=== PATIENT | female | born 1970 | race Caucasian/White ===

== ENCOUNTER 2017-11-05 14:17 | Emergency (ER) | payer OTHER, SELFPAY ==
[2017-11-05 14:19] VITALS: BP 141/66; PULSE 65; RESP 20; TEMP 36.5; O2SAT 100; BMI 19.2
--- NOTE | 2017-11-05 14:37 | HMH.EDABDPAI ---
ED Disposition Clinical Impression: Abnormal CT of the abdomen, Recent unexplained weight loss Abdominal pain Qualifiers: Abdominal location: right lower quadrant Qualified Code(s): R10.31 - Right lower quadrant pain Disposition: Xfer Short-Term Hosp Condition on Discharge: Fair Instructions: DI for Acute Abdomen Forms: Transfer Record - ED - Critical Care Critical Care Time: No Attestation: On 11/05/17, the high probability of a clinically significant, sudden or life threatening deterioration of the following system(s) required my full and direct attention, intervention and personal management. The time I documented below is in addition to time spent performing reported procedures but includes the following listed in this critical care notation. Medical Decision Making - Stas Inquiry Pt receiving controlled substance: Yes Stas was queried for this patient: Yes Reference #:: [id number] Risks and benefits of using a controlled substance: were discussed with pt by me Vital Signs: 11/05/17 14:19 11/05/17 16:49 11/05/17 17:28 Temperature 97.7 F 97.7 F Temperature Source Oral Oral Pulse Rate 77 Pulse Rate [Right Radial] 65 77 Respiratory Rate 20 20 20 Blood Pressure 132/78 Blood Pressure [Right Arm] 141/66 132/78 Blood Pressure Mean [Right Arm] 91 96 Blood Pressure Source [Right Arm] Automatic Cuff Blood Pressure Position Sitting Blood Pressure Position [Right Arm] Sitting Sitting 02 Sat by Pulse Oximetry 100 99 Oxygen Delivery Method Room Air Room Air Room Air - Lab Data Lab results reviewed: Yes: I reviewed the patient's lab results. Lab Results 11/05/17 14:35: WBC 9.5, RBC 4.94, Hgb 15.0, Hct 44.1, MCV 89.3, MCH 30.4, MCHC 34.0, RDW 12.2, Plt Count 409, MPV 7.1 L, Neut % (Auto) 75.6, Lymph % (Auto) 19.6, [place] % (Auto) 2.6, Eos % (Auto) 1.7, Baso % (Auto) 0.5, Neut # (Auto) 7.2, Lymph # (Auto) 1.9, [place] # (Auto) 0.3, Eos # (Auto) 0.2, Baso # (Auto) 0.0 11/05/17 14:35: Sodium 141, Potassium 3.6, Chloride 102, Carbon Dioxide 28, Anion Gap 14.6, BUN 17, Creatinine 0.65, Estimated Creat Clear 79, Estimated GFR 97, Est GFR ( Amer) 117, Glucose 120 H, Calcium 9.7, Total Bilirubin 0.2, AST 17, ALT 23, Alkaline Phosphatase 83, Total Protein 7.9, Albumin 3.9, Globulin 4.0 H, Albumin/Globulin Ratio 1.0 L 11/05/17 16:10: Urine Color Yellow, Urine Appearance Clear, Urine pH 5.5, Ur Specific [place] >= 1.030, Urine Protein Negative, Urine Glucose (UA) Negative, Urine Ketones Negative, Urine Blood 2+, Urine Nitrate Negative, Urine Bilirubin Negative, Urine Urobilinogen 0.2, Ur Leukocyte Esterase Negative, Urine RBC 5-10, Urine WBC Occasional, Ur Squamous Epith Cells 5-10, Urine Bacteria 2+, Hyaline Casts 3-5 Result diagrams: 11/05/17 14:35 11/05/17 14:35 Orders (Tests/Meds): ED MEDICATIONS Discontinued Medications Generic Name Dose Route Start Last Admin Trade Name Freq PRN Reason Stop Dose Admin Sodium Chloride 1,000 mls @ 500 mls/hr 11/05/17 15:00 Sod Chlor 0.9% 1000ml Bag IV 12/05/17 14:59 .Q2H TAYO Sodium Chloride 500 mls @ 999 mls/hr 11/05/17 15:00 11/05/17 14:52 Sod Chlor 0.9% 1000ml Bag IV 11/05/17 15:30 999 mls/hr .Q31M TAYO Administration Ketorolac Tromethamine 15 mg 11/05/17 14:46 11/05/17 14:50 Toradol 30mg/Ml Vial IV 11/05/17 14:47 15 mg ONCE ONE Administration Ketorolac Tromethamine 15 mg 11/05/17 15:11 11/05/17 15:12 Toradol 30mg/Ml Vial IV 11/05/17 15:12 15 mg ONCE ONE Administration Morphine Sulfate 2 mg 11/05/17 16:34 Morphine 5mg/Ml Syringe IV 12/05/17 16:33 Q4HP PRN Breakthru Moderate Pain Morphine Sulfate 2 mg 11/05/17 17:05 11/05/17 17:09 Morphine 2mg/Ml Syringe IV 11/05/17 17:06 2 mg ONCE ONE Administration Morphine Sulfate 2 mg 11/05/17 17:35 Morphine 2mg/Ml Syringe IV 11/05/17 17:36 ONCE ONE Ondansetron HCl 4 mg 11/05/17 14:46 11/05/17 14:50 Zofran 4mg/2
--- NOTE | 2017-11-05 14:40 | ED_ITS ---
ED Disposition Clinical Impression: Abnormal CT of the abdomen, Recent unexplained weight loss Abdominal pain Qualifiers: Abdominal location: right lower quadrant Qualified Code(s): R10.31 - Right lower quadrant pain Disposition: Xfer Short-Term Hosp Condition on Discharge: Fair Instructions: DI for Acute Abdomen Forms: Transfer Record - ED - Critical Care Critical Care Time: No Attestation: On 11/05/17, the high probability of a clinically significant, sudden or life threatening deterioration of the following system(s) required my full and direct attention, intervention and personal management. The time I documented below is in addition to time spent performing reported procedures but includes the following listed in this critical care notation. Medical Decision Making - Stas Inquiry Pt receiving controlled substance: Yes Stas was queried for this patient: Yes Reference #:: [id number] Risks and benefits of using a controlled substance: were discussed with pt by me Vital Signs: 11/05/17 14:19 11/05/17 16:49 11/05/17 17:28 Temperature 97.7 F 97.7 F Temperature Source Oral Oral Pulse Rate 77 Pulse Rate [Right Radial] 65 77 Respiratory Rate 20 20 20 Blood Pressure 132/78 Blood Pressure [Right Arm] 141/66 132/78 Blood Pressure Mean [Right Arm] 91 96 Blood Pressure Source [Right Arm] Automatic Cuff Blood Pressure Position Sitting Blood Pressure Position [Right Arm] Sitting Sitting 02 Sat by Pulse Oximetry 100 99 Oxygen Delivery Method Room Air Room Air Room Air - Lab Data Lab results reviewed: Yes: I reviewed the patient's lab results. Lab Results 11/05/17 14:35: WBC 9.5, RBC 4.94, Hgb 15.0, Hct 44.1, MCV 89.3, MCH 30.4, MCHC 34.0, RDW 12.2, Plt Count 409, MPV 7.1 L, Neut % (Auto) 75.6, Lymph % (Auto) 19.6, [place] % (Auto) 2.6, Eos % (Auto) 1.7, Baso % (Auto) 0.5, Neut # (Auto) 7.2 , Lymph # (Auto) 1.9, [place] # (Auto) 0.3, Eos # (Auto) 0.2, Baso # (Auto) 0.0 11/05/17 14:35: Sodium 141, Potassium 3.6, Chloride 102, Carbon Dioxide 28, Anion Gap 14.6, BUN 17, Creatinine 0.65, Estimated Creat Clear 79, Estimated GFR 97, Est GFR ( Amer) 117, Glucose 120 H, Calcium 9.7, Total Bilirubin 0.2, AST 17, ALT 23, Alkaline Phosphatase 83, Total Protein 7.9, Albumin 3.9, Globulin 4.0 H, Albumin/Globulin Ratio 1.0 L 11/05/17 16:10: Urine Color Yellow, Urine Appearance Clear, Urine pH 5.5, Ur Specific [place] >= 1.030, Urine Protein Negative, Urine Glucose (UA) Negative, Urine Ketones Negative, Urine Blood 2+, Urine Nitrate Negative, Urine Bilirubin Negative, Urine Urobilinogen 0.2, Ur Leukocyte Esterase Negative, Urine RBC 5-10 , Urine WBC Occasional, Ur Squamous Epith Cells 5-10, Urine Bacteria 2+, Hyaline Casts 3-5 Result diagrams: 11/05/17 14:35 11/05/17 14:35 Orders (Tests/Meds): ED MEDICATIONS Discontinued Medications Generic Name Dose Route Start Last Admin Trade Name Freq PRN Reason Stop Dose Admin Sodium Chloride 1,000 mls @ 500 mls/hr 11/05/17 15:00 Sod Chlor 0.9% 1000ml Bag IV 12/05/17 14:59 .Q2H TAYO Sodium Chloride 500 mls @ 999 mls/hr 11/05/17 15:00 11/05/17 14:52 Sod Chlor 0.9% 1000ml Bag IV 11/05/17 15:30 999 mls/hr .Q31M TAYO Administration Ketorolac Tromethamine 15 mg 11/05/17 14:46 11/05/17 14:50 Toradol 30mg/Ml Vial IV 11/05/17 14:47 15 mg ONCE ONE Administration
--- NOTE | 2017-11-05 14:48 | CT_ITS ---
CT abdomen pelvis wo con Ordering Physician: Aggie Gilmore MD Patient Age: 47 years: Female HISTORY: ITS.REASON: Kidney stone protocol TECHNIQUE: COMPARISON : FINDINGS On close inspection I would note DOT of FREE AIR seen just anterior to the liver in the region of falciform ligament axial slice 35. Continuing inferior to this there is also a smallDOT FREE AIR axial slice 49 just anterior to the antrum of the low-lying stomach, just to the right of the umbilicus. Lung bases. A linear area of likely inflammation likely scarring and atelectasis with somewhat similar appearance to thousand 15. Slightly more evident today is adjacent to thousand 15.. Right lung unremarkable. The heart normal size. Abdomen/pelvis. Lack of oral & IV contrast decreases sensitivity. Particularly in this thin patient Liver no focal lesions. Liver upper normal in size with generous length right lobe 19 seem in length extending down towards the level of the iliac crest upper pelvis. There is some edema within the mesentery and omentum. Spleen unremarkable. Pancreas not well seen on this noncontrast study but grossly unremarkable. No biliary ductal dilatation. -- Hazy stranding slight edematous appearance is seen throughout the anterior abdomen, is likely reflects omental edema. Either inflammation or ischemia here or possibly omental implants are in the differential considerations. However less evident edema seen at the mesentery also some wispy seen inferior to the right lobe of liver. Minimal free fluid at the pelvis. Nonspecific physiologic pelvic fluid versus related to the above mentioned abnormalities The appendix was well seen on a 2015 study posterior to the cecum. I suspect we see a the appendix here although it is difficult to delineate. No good evidence of appendicitis. After speaking with ER physician may want to consider a follow-up follow-up study with IV contrast to further evaluate vascularity given this unusual appearance. I would like to see a very enhancing masses into the evaluate mesenteric and possibly omental perfusion pattern. There is no bowel dilatation or obstruction evident. There are some small bowel loops of upper normal wall thickness but this is unimpressive. Moderate stool is seen throughout the right and transverse colon and left colon. No constipation. Pelvis. Uterus is generous in size in girth. Again prominent uterus which may reflect underlying uterine fibroids fundus of uterus measuring 7 cm transverse with entire uterus measuring 8 cm length. No obvious adnexal masses.. No mesenteric nor portal venous gas evident. Kidneys. No urinary tract calculi nor obstruction. Ureters unremarkable aorta normal caliber IMPRESSION: 1.TWO SUBTLE DOTs of FREE AIR are seen at the anterior abdomen. Axial slice 35 in the region of the falciform ligament; the other overlying the antrum of the stomach axial slice 49. Surgical consult required. 2. ... Abnormal Hazy edematous stranding appearance throughout the Omentum throughout anterior abdomen.-Reflects omental pathology either from edema/ inflammation, or conceivably omental seeding. Less Likely ischemia process this age patient but included in the differential.. Also diffuse mild mesenteric edema noted but slightly less, pronounced than the omental findings It also Wispy fluid along the inferior margin into the right right pelvis, with minimal free fluid at pelvis.. 3. No bowel dilatation or obstruction. A few small bowel loops are upper normal wall thickness. 4.... Again noted enlarged uterus similar to 2015. Large girth uterus likely reflecting underlying fibroids No definitive adnexal pathology but difficult to evaluate for such on this scan 5.. Linear area of density left
[2017-11-05 15:06] LABS: Basophils % 0.5 % (0.1-2.0); Eosinophils # 0.2 K/mm3 (0.0-0.4); Eosinophils % 1.7 % (0.1-12.0); Hematocrit 44.1 % (37.0-47.0); Lymphocytes # 1.9 K/mm3 (0.7-4.5); Lymphocytes % 19.6 K/mm3 (10-50); Mean Corpuscular Hemoglobin 30.4 pg (27.0-31.2); Mean Corpuscular Volume 89.3 fl (81-99); Mean Platelet Volume 7.1 fl (7.4-10.4); Monocytes # 0.3 K/mm3 (0.1-1.0); Monocytes % 2.6 % (1.7-9.3); Neutrophils # 7.2 K/mm3 (1.8-7.8); Neutrophils % 75.6 % (37.0-80.0); Platelet Count 409 K/mm3 (142-424); Red Blood Count 4.94 M/mm3 (4.20-5.40); Red Cell Distribution Width 12.2 % (11.5-17.5); White Blood Count 9.5 K/mm3 (4.8-10.8)
[2017-11-05 15:10] LABS: Alanine Aminotransferase 23 U/L (12-78); Albumin Level 3.9 gm/dL (3.4-5.0); Alkaline Phosphatase 83 U/L (46-116); Anion Gap 14.6 mEq/L (5-15); Aspartate Amino Transferase 17 U/L (15-37); Bilirubin,Total 0.2 mg/dL (0.2-1.0); Blood Urea Nitrogen 17 mg/dL (7-18); Calcium 9.7 mg/dL (8.5-10.1); Carbon Dioxide 28 mmol/L (21.0-32.0); Chloride 102 mmol/L (98-107); Creatinine Clearance Estimated 79 mL/min (0-300); Creatinine,Serum 0.65 mg/dL (0.55-1.02); Estimated Glomerular Filt Rate 97 ml/min (>60); GFR (African American) 117 ML/MIN (>60); Glucose 120 mg/dL (74-106); Potassium 3.6 mmoL/L (3.5-5.1); Sodium 141 mmol/L (136-145); Total Protein,Serum 7.9 gm/dL (6.4-8.2)
[2017-11-05 16:45] LABS: Microscopic, Urine URINE MICROSCOPIC (MICROSCOPIC)
[2017-11-05 16:49] VITALS: BP 132/78; PULSE 77; RESP 20; O2SAT 99
--- NOTE | 2017-11-05 17:00 | PC.NURSE ---
Called [facility]
[2017-11-05 17:03] LABS: Appearance,Urine CLEAR (Clear); Bilirubin,Urine Negative (Negative); Blood, Urine 2+ (Negative); Color,Urine YELLOW (Yellow); Glucose,Urine (UA) Negative (Negative); Ketones,Urine Negative (Negative); Leukocyte Esterase,Urine Negative (Negative); Nitrate,Urine Negative (Negative); PH,Urine 5.5 (5.0-8.5); Protein,Urine Negative (Negative); Specific Gravity, Urine >= 1.030 (1.005-1.030); Urobilinogen,Urine 0.2 EU/dl (0.2)
--- NOTE | 2017-11-05 17:09 | PC.NURSE ---
dr ventura orders to cancel ct with iv contrast
[2017-11-05 17:18] LABS: Bacteria,Urine 2+ /lpf; WBC,Urine Occasional #/hpf (0-3)
[2017-11-05 17:28] VITALS: BP 132/78; PULSE 77; RESP 20; TEMP 36.5
== END 2017-11-05 17:20 | disposition short-term general hospital (02) ==
PROVIDERS: Emergency Provider Emergency Medicine; Family Provider Pediatrics
DX: R10.31 Right lower quadrant pain (principal); R63.4 Abnormal weight loss; R93.5 Abnormal findings on diagnostic imaging of other abdominal regions, including retroperitoneum; Z88.0 Allergy status to penicillin
CPT/HCPCS: 74176; 80053; 81001; 85025; 87086; 96365; 96375; 99284; J2405

== ENCOUNTER → 2018-09-15 15:16 | Outpatient (CLI) | payer OTHER, SELFPAY ==
[2018-09-15 17:17] LABS: Amphetamine/Metha Screen,Urine Negative ng/mL (<1000); Barbiturates Screen,Urine Negative ng/mL (<200); Benzodiazepines Screen,Urine Negative ng/mL (<200); Cannabinoid Screen,Urine Negative ng/mL (<50); Cocaine Screen,Urine Negative ng/mL (<300); Methadone Screen,Urine Negative ng/mL (<300); Opiate Screen,Urine Positive ng/mL (<300); Phencyclidine Screen,Urine Negative ng/mL (<25)
[2018-09-20 09:52] LABS: Microalbumin, Urine <3.0 ug/mL (Not Estab.)
== END ==
PROVIDERS: Visit Provider Nurse Practitioner Family
DX: Z91.89 Other specified personal risk factors, not elsewhere classified (principal); R53.83 Other fatigue
CPT/HCPCS: 80305; 82043

== ENCOUNTER → 2018-09-20 08:35 | Outpatient (CLI) | payer OTHER, SELFPAY ==
--- NOTE | 2018-09-20 09:06 | XR_ITS ---
XR chest 2V HISTORY: Right side low back pain ITS.REASON: cough ORDERING PHYSICIAN: Kiki Barr PATIENT AGE: 48 years Technique: PA and lateral chest COMPARISON: No previous chest film A CT abdomen from 2014 includes lower chest FINDINGS: The lungs appear well expanded and clear with nothing definitely acute. No pleural effusion. No pneumothorax. There is some scarring at the left lung base on the previous CT which likely accounts for some minimal density on the lateral view projected over the posterior heart Nipple shadows noted bilaterally on the frontal projection. No significant densities or nodules otherwise identified. The heart, marin, and mediastinal structures satisfactory. . Chest wall and visualized T-spine appear intact. Upper most L-spine included and unremarkable as well. IMPRESSION Nothing definitely acute. . Lungs clear Nipple shadows, account for the symmetric nodules at lung bases
--- NOTE | 2018-09-20 09:06 | XR_ITS ---
XR lumbar spine 6V w bending Ordering Physician: Kiki Barr Patient Age: 48 years: Female HISTORY: ITS.REASON: back pain smoker. Back pain TECHNIQUE: 7 view lumbar spine series Standard five-view L-spine with the addition of lateral flexion and extension views. A total of 7 images submitted COMPARISON :CT abdomen 2018 Octoberviews of spine. FINDINGS The vertebral bodies intact. . The disc spaces are fairly well-maintained. There is normal alignment. No subluxation.. Pedicles, transverse processes, SI joints views of sacrum unremarkable on today's image.. . There are some early anterior marginal osteophytes at L2/3 and to the right left midline but this disc is well-maintained. Patient does have slight accentuated angle at the lumbosacral junction, but the disc spaces well-maintained and I see no pars defect. There is no listhesis. Flexion-extension views were included and show a good mobility with spine extension... Less mobility is seen with the submitted flexion images.. Somewhat nonspecific as could merely due to technologist positioning and lack of patient effort,, although can reflect reflect muscle spasm from back pain and discomfort... There is no subluxation or significant additional findings between the flexion-extension images. On the prior October 2017 CT would I would note generous volume spinal canal, With no prominent findings only minimal disc bulge at L5/S1 evident on those images Last wall and would note appear to be some apposition between the L4-L5 spinous processes. The spinous processes do articulate with one another-. This Nonspecific feature but can be a source of localized back discomfort as well. Requires correlation IMPRESSION: Lumbar vertebral bodies are vertebral disc spaces well-maintained throughout. No significant additional findings with flexion and extension views. Only note Slightly limited mobility on flexion views Additional comments in text.
[2018-09-20 10:01] LABS: Basophils # 0.1 K/mm3 (0-0.2); Basophils % 0.9 % (0.1-2.0); Eosinophils # 0.3 K/mm3 (0.0-0.4); Eosinophils % 5.1 % (0.1-12.0); Hematocrit 43.1 % (37.0-47.0); Hemoglobin 13.9 g/dL (12.2-16.2); Lymphocytes # 1.9 K/mm3 (0.7-4.5); Lymphocytes % 28.8 % (10-50); Mean Corpuscular HGB Conc 32.2 g/dL (31.8-35.4); Mean Corpuscular Hemoglobin 29.9 pg (27.0-31.2); Mean Corpuscular Volume 92.7 fl (81-99); Mean Platelet Volume 7.1 fl (7.4-10.4); Monocytes # 0.3 K/mm3 (0.1-1.0); Monocytes % 4.2 % (1.7-9.3); Neutrophils # 4.1 K/mm3 (1.8-7.8); Neutrophils % 61.1 % (37.0-80.0); Platelet Count 330 K/mm3 (142-424); Red Blood Count 4.65 M/mm3 (4.20-5.40); Red Cell Distribution Width 12.9 % (11.5-17.5); White Blood Count 6.8 K/mm3 (4.8-10.8)
[2018-09-20 10:13] LABS: Hemoglobin A1C 5.8 % (0.0-7.0)
[2018-09-20 10:44] LABS: Alanine Aminotransferase 20 U/L (12-78); Albumin Level 3.5 gm/dL (3.4-5.0); Albumin/Globulin Ratio 1.1 (1.1-1.8); Alkaline Phosphatase 84 U/L (46-116); Anion Gap 13.7 mEq/L (5-15); Aspartate Amino Transferase 13 U/L (15-37); Bilirubin,Total 0.5 mg/dL (0.2-1.0); Blood Urea Nitrogen 15 mg/dL (7-18); Carbon Dioxide 27 mmol/L (21.0-32.0); Chloride 107 mmol/L (98-107); Chol/HDL Ratio 2.4 (1-3.5); Cholesterol 166 mg/dL (140-200); Creatinine,Serum 0.71 mg/dL (0.55-1.02); Estimated Glomerular Filt Rate 87 ml/min (>60); GFR (African American) 105 ML/MIN (>60); Globulin 3.3 gm/dl (1.3-3.2); Glucose 94 mg/dL (74-106); HDL Cholesterol 68 mg/dL (29-89); LDL Cholesterol 85 mg/dL (0-130); Potassium 4.7 mmoL/L (3.5-5.1); Sodium 143 mmol/L (136-145); T4 (Thyroxine) 5.9 ug/dl (4.7-13.3); Thyroid Stimulating Hormone 6.49 uIU/ml (0.358-3.740); Total Protein,Serum 6.8 gm/dL (6.4-8.2); Triglycerides 64 mg/dL (30-200); VLDL Cholesterol 13 mg/dL (0-40)
[2018-09-21 15:27] LABS: Vitamin D 25 Hydroxy 34.6 ng/mL (30.0-100.0)
== END ==
PROVIDERS: PCP Emergency Medicine; Visit Provider Nurse Practitioner Family
DX: F32.9 Major depressive disorder, single episode, unspecified (principal); G89.29 Other chronic pain; M54.5 Low back pain; R05 Cough; R53.83 Other fatigue
CPT/HCPCS: 36415; 71046; 72114; 80053; 80061; 82652; 83036; 84436; 84443; 85025

== ENCOUNTER 2020-06-04 17:12 | Emergency (ER) | payer OTHER, SELFPAY ==
[2020-06-04 17:14] VITALS: BP 104/61; PULSE 71; RESP 17; TEMP 36.7; O2SAT 97; BMI 25.0
--- NOTE | 2020-06-04 17:23 | CT_ITS ---
PROCEDURE: CT LUMBAR SPINE WO CON CLINICAL HISTORY: pain Low back pain, severe low back pain COMPARISON: CT ABDPELW CT abdomen pelvis w con from 11/05/[address] abdomen pelvis wo con from 11/05/2017 TECHNIQUE: Axial images obtained with sagittal and coronal reformats. All CT scans at the facility use one or more dose reduction, viz: automated exposure control, ma/kV adjustment per patient size (including targeted exams where dose is matched to indication, i.e. head), or iterative reconstruction technique. FINDINGS: No fracture or dislocation. No lytic or blastic change. There is normal alignment. The disc spaces are well preserved. There is mild bulging disc at L5-S1. Small anterior osteophytes are present at L4, L3, T12 and L1. Parenchymal opacity is present in the left lung base posteriorly and is incompletely imaged. Consider chest CT for further evaluation. IMPRESSION: 1. No acute finding of the lumbar spine. 2. Mild bulging disc L5-S1 with small anterior osteophytes noted in the lumbar spine. 3. Incompletely imaged posterior parenchymal opacity in the left lower lobe. Consider dedicated chest CT for more thorough evaluation. Dictated by: Jona Morris MD 06/05/2020 06:15 Jona Morris MD in [place] 06/05/2020 06:15
--- NOTE | 2020-06-04 17:55 | PC.NURSE ---
Pt to rad.
--- NOTE | 2020-06-04 18:09 | HMH.EDBACK ---
ED Disposition Clinical Impression: Lumbar strain Qualifiers: Encounter type: initial encounter Qualified Code(s): S39.012A - Strain of muscle, fascia and tendon of lower back, initial encounter Disposition: Home, Self-Care Condition on Discharge: Good Instructions: DI for Low Back Pain Prescriptions: Cyclobenzaprine HCl [Cyclobenzaprine 10mg Tab*] 10 mg PO BIDP PRN #20 tab PRN Reason: Moderate Pain Transmission Status: Pending to [facility] # Ibuprofen [Ibuprofen 800mg Tablet] 800 mg PO TIDP PRN #20 tab PRN Reason: Moderate Pain Transmission Status: Pending to [facility] # Referrals: PCP,No [Primary Care Provider] - Lorenzo Puri MD [Staff Physician] - - Critical Care Critical Care Time: No Attestation: On 06/04/20, the high probability of a clinically significant, sudden or life threatening deterioration of the following system(s) required my full and direct attention, intervention and personal management. The time I documented below is in addition to time spent performing reported procedures but includes the following listed in this critical care notation. Medical Decision Making - Medical Records Medical records reviewed: Yes: I reviewed the patient's medical records. - Stas Inquiry Pt receiving controlled substance: Yes Stas was queried for this patient: No Reason not queried -: Emergent pt cond-no time Risks and benefits of using a controlled substance: were discussed with pt by me Vital Signs: 06/04/20 17:14 Temperature 98.1 F Temperature Source Oral Pulse Rate [Left] 71 Respiratory Rate 17 Blood Pressure [Right Arm] 104/61 L Blood Pressure Mean [Right Arm] 75 Blood Pressure Source [Right Arm] Automatic Cuff Blood Pressure Position [Right Arm] Supine 02 Sat by Pulse Oximetry 97 Oxygen Delivery Method Room Air Orders (Tests/Meds): ORDERS Category Date Time Status CT lumbar spine wo con Stat Cat Scan 06/04/20 17:23 Taken - CT Data CT Scan: L-Spine Time Received: 18:[address] Reviewed: Yes: I have reviewed the patient's CT results, I have viewed the radiologist's interpretation Preliminary Findings: No Fracture Seen - Reevaluation(s) Time: 18:41 Reevaluation #1: On reevaluation, the patient is feeling better. Repeat exam is improved. There is no evidence of spinal cord impingement. Patient will be treated symptomatically for the next few days. Need to follow-up with PCP in 24 hours. Given strict return precautions. Verbalized understanding. Medical Decision Narrative: 49-year-old female presenting with low back pain. I do believe symptoms are consistent with lumbar strain. However the patient does have midline tenderness. CT will be obtained. Back Pain HPI - General Chief Complaint: Back Pain/Injury Stated Complaint: Chronic from herniated disk Time Seen by Provider: 06/04/20 17:20 Mode of Arrival: Wheelchair Limitations: No Limitations Description of Symptoms (Recalled from ER Triage Doc. by RN): Back Pain- Pt stated that she is having lower back pain that started yesterday and is radiating into left leg. Back pain is chronic from a herniated disk. - History of Present Illness HPI Narrative: 49-year-old female presented to the emergency department with low back pain. Patient is a history of chronic back pain due to an injury many years ago. She states that she sat down and stood up awkwardly yesterday and started having some pain. Is located in her lower back. It does not radiate anywhere. It is dull in nature. Patient states that she has not taken anything for the pain. She denies any dysuria or hematuria. She is not having any abdominal pain or vomiting. No fevers or chills. Denies any chest pain or shortness of breath. - Related Data Previous Rx's Medication Instructions Recorded Cyclobenzaprine HCl 10 mg PO BIDP PRN #20 tab 06/04/20 [Cyclobenzaprine 10mg Tab*] Ibuprofen [Ibuprofen 800mg 800 mg
[2020-06-04 18:57] VITALS: BP 104/61; PULSE 71; RESP 17; TEMP 36.7; O2SAT 98
== END 2020-06-04 18:58 | disposition home or self-care (01) ==
PROVIDERS: Emergency Provider Emergency Medicine
DX: S39.012A Strain of muscle, fascia and tendon of lower back, initial encounter (principal); I10 Essential (primary) hypertension; F41.8 Other specified anxiety disorders; K21.9 Gastro-esophageal reflux disease without esophagitis; F17.210 Nicotine dependence, cigarettes, uncomplicated; G43.709 Chronic migraine without aura, not intractable, without status migrainosus; E03.9 Hypothyroidism, unspecified; Z88.0 Allergy status to penicillin; Z79.899 Other long term (current) drug therapy
CPT/HCPCS: 72131; 99282

== ENCOUNTER 2021-08-25 09:27 | Emergency (ER) | payer SELFPAY ==
[2021-08-25 09:32] VITALS: PULSE 98; RESP 16; TEMP 37.2; O2SAT 98; BMI 22.3
--- NOTE | 2021-08-25 11:14 | HMH.EDGENADL ---
ED Disposition Clinical Impression: Otitis media of right ear Qualifiers: Otitis media type: unspecified Qualified Code(s): H66.91 - Otitis media, unspecified, right ear Disposition: Home, Self-Care Condition on Discharge: Good Instructions: Middle Ear Infection, DI for Viral Upper Respiratory Infection -- Adult Additional Instructions: follow up pcp Prescriptions: Azithromycin [Zithromax 500mg Tab Tri-Dennys] 500 mg PO DAILY #3 tab Transmission Status: Pending to [facility] #[id number] Referrals: Provider,Referral, [Primary Care Provider] - - Critical Care Critical Care Time: No Attestation: On 08/25/21, the high probability of a clinically significant, sudden or life threatening deterioration of the following system(s) required my full and direct attention, intervention and personal management. The time I documented below is in addition to time spent performing reported procedures but includes the following listed in this critical care notation. Medical Decision Making - Medical Records Medical records reviewed: Yes: I reviewed the patient's medical records. - Stas Inquiry Pt receiving controlled substance: No Vital Signs: 08/25/21 09:32 Temperature 98.9 F Temperature Source Oral Pulse Rate [Right] 98 H Respiratory Rate 16 02 Sat by Pulse Oximetry 98 Oxygen Delivery Method Room Air Orders (Tests/Meds): ORDERS Category Date Time Status Covid-19 Nasal PCR ([facility]) Routine Lab 08/25/21 09:34 Ordered General Adult HPI - General Stated complaint: sore throat, weakness, h/a, body aches/muscle pain Time Seen by Provider: 08/25/21 11:14 Mode of Arrival: Ambulatory Source of Information: Patient Limitations: No Limitations Description of Symptoms (Recalled from ER Triage Doc. by RN): pt c/o fever, body aches, chills - History of Present Illness HPI narrative: fever, uri symptoms, rt otalgia Onset (ago): day(s) Radiation: non-radiation Severity: moderate Consistency: intermittent Relieving factors: none Exacerbating factors: none Associated symptoms: denies other symptoms - Related Data Previous Rx's Medication Instructions Recorded Cyclobenzaprine HCl 10 mg PO BIDP PRN #20 tab 06/04/20 [Cyclobenzaprine 10mg Tab*] Ibuprofen [Ibuprofen 800mg 800 mg PO TIDP PRN #20 tab 06/04/20 Tablet] Azithromycin [Zithromax 500mg Tab 500 mg PO DAILY #3 tab 08/25/21 Tri-Dennys] Allergies Allergy/AdvReac Type Severity Reaction Status Date / Time Penicillins [PENICILLINS] Allergy Intermediate I-HIVES Verified 09/29/18 13:51 [facility] History - Hepatitis A Screen Drug use history?: No High risk sexual behaviors?: No History of sexually transmitted infection?: No Currently employed?: No Childcare worker?: No Do you have indoor plumbing?: Yes Do you have electricity?: Yes Attestation statement:: This patient has been screened for Hepatitis A risk factors. Medical History: Reports:: Anxiety, Depression, Gastroesophageal Reflux Disease(GERD), Hypertension, Migraine, Ulcer Denies:: Cancer, Diabetes Mellitus Type 1, Diabetes Mellitus Type 2, Hiatal Hernia, Hyperlipidemia, Internal Pacemaker, Kidney Stones, MRSA, Pulmonary Embolism Other Medical History: Denies: Fibromyalgia, Hormone Therapy, Hypothyroidism, Liver Disease, Sinus Problems Other Surgeries: Yes: Dilation and Curettage, Other. No: Pacemaker Amputation: No Fractures: No Comment: Perforated Ulcer surgery @ in 2018 - Social History Smoking Status: Current every day smoker Tobacco Type: cigarettes # Packs/Day (cigarettes): 1 Alcohol Intake: never Alcohol Intake Frequency:: holidays/special occasions only Substance Use Type: denies use Occupational Status: unemployed Housing: house Household Members: family, children - Psychiatric History Pschychiatric History:: Reports:: Anxiety, Depression Family Hx:: Hypertension, Diabetes, Cancer ROS Obtained: Yes All systems reviewed & no additional complaints Physic
--- NOTE | 2021-08-25 11:21 | PC.NURSE ---
Med at bedside; swabbed patient and they were sent to lab
[2021-08-25 11:29] VITALS: BP 134/86; PULSE 91; RESP 16; TEMP 37.2; O2SAT 98
== END 2021-08-25 11:31 | disposition home or self-care (01) ==
LOC: ER 09:32 → UTC 09:32 → ER 11:11
PROVIDERS: Nurse Practitioner Family; Emergency Provider Emergency Medicine
DX: H66.91 Otitis media, unspecified, right ear (principal); U07.1 COVID-19; K21.9 Gastro-esophageal reflux disease without esophagitis; F41.8 Other specified anxiety disorders; I10 Essential (primary) hypertension; M79.7 Fibromyalgia; F17.210 Nicotine dependence, cigarettes, uncomplicated
CPT/HCPCS: 87804; 99202; C9803; G0463; U0003; U0005

== ENCOUNTER 2023-01-08 08:54 | Emergency (ER) | payer MEDICAID, SELFPAY ==
[2023-01-08 08:54] VITALS: BP 105/78; PULSE 97; RESP 16; TEMP 37; O2SAT 97; BMI 23.8
--- NOTE | 2023-01-08 08:57 | HMH.EDABDPAI ---
Discharge Plan Disposition Patient Disposition: Home, Self-Care Prescriptions Prescriptions: New ciprofloxacin HCl 500 mg tablet 500 mg PO BID Qty: 20 0RF No Action azithromycin 500 MG tablet 500 mg PO DAILY Qty: 3 0RF ibuprofen 800 MG tablet 800 mg PO TIDP PRN (Reason: Moderate Pain) Qty: 20 0RF cyclobenzaprine 10 MG tablet 10 mg PO BIDP PRN (Reason: Moderate Pain) Qty: 20 0RF Referrals Follow up/Referrals: Provider,Referral, MD [Primary Care Provider] - See instructions Activity Restrictions/Add. Instructions Additional Instructions/Restrictions: Start taking your prescribed medication today. You have to take it twice a day for the next 10 days. Return to the emergency department immediately if you feel worse in any way. Also return to the emergency department if you start vomiting and are unable to keep down your medications. Follow-up with your primary care doctor in about 3 to 4 days if you do not feel any better. You can take [id number] Tylenol and/or Motrin for your pain. Clinical Impressions Clinical Impression: Pyelonephritis Stand Alone Forms Stand Alone Forms: Work/School Release Instructions Patient Instructions: DI for Kidney Infection Discharge ED Provider: Cora Dubon Abdominal Pain HPI General Chief Complaint: Abdominal Pain Stated Complaint: abd pain Time Seen by Provider: 01/08/23 08:57 History of Present Illness HPI narrative: The patient presents to the emergency department complaining of lower abdominal pain that began yesterday. The patient denies diarrhea, nausea, vomiting. She also denies fever. She does complain of dysuria. The pain is worse on the left than on the right. The patient has had a perforated ulcer many years ago for which she had a celiotomy. She is allergic to penicillin and has only taken ibuprofen last night. She takes no medications. Related Data Previous Rx's Medication Instructions Recorded cyclobenzaprine 10 mg tablet 10 mg PO BIDP PRN Moderate Pain 06/04/20 #20 tabs ibuprofen 800 mg tablet 800 mg PO TIDP PRN Moderate Pain 06/04/20 #20 tabs azithromycin 500 mg tablet 500 mg PO DAILY #3 tabs 08/25/21 ciprofloxacin HCl 500 mg tablet 500 mg PO BID #20 tabs 01/08/23 Allergies Allergy/AdvReac Type Severity Reaction Status Date / Time Penicillins [PENICILLINS] Allergy Intermediate I-HIVES Verified 09/29/18 13:51 [facility] Disclaimer: The information contained in this section may have been updated after the patient was seen, as this information can be updated by other users. Social History Smoking Status: Current every day smoker tobacco type: cigarettes packs per day: 1 second hand exposure: No alcohol intake: never substance use type: denies use current occupational status: unemployed Travel in the last 8 weeks: None household members: family and children housing: house current occupational exposures/hazards: No caffeine: Yes ROS Obtained: Yes All systems reviewed & no additional complaints except as documented Physical Exam General General appearance: alert Head Head exam: atraumatic Eye Eye exam: Present normal appearance ENT ENT exam: Present normal exam Neck Neck exam: Present normal inspection and full ROM; Absent tenderness or meningismus Chest Chest inspection: Present normal inspection and symmetric chest wall rise; Absent tenderness Respiratory Respiratory exam: Present normal lung sounds bilaterally; Absent respiratory distress or accessory muscle use Cardiovascular Cardiovascular exam: Present regular rate, normal rhythm and normal heart sounds Abdominal Exam Abdominal exam: Present soft, tenderness (Lower abdomen, worse on the left than on the right) and normal bowel sounds; Absent distention, guarding, rebound, rigidity, heel tap sign, Hancock's sign, Rovsing's sign, tenderness at McBurney's Point or mass Extremities Exam Extremities exam: Present normal inspectio
[2023-01-08 09:00] VITALS: BP 123/74; PULSE 89; O2SAT 97
[2023-01-08 09:20] LABS: Basophils # 0.1 K/mm3 (0-0.2); Basophils % 0.6 % (0.1-2.0); Eosinophils # 0.3 K/mm3 (0.0-0.4); Hematocrit 46.7 % (37.0-47.0); Hemoglobin 15.3 g/dL (12.2-16.2); Lymphocytes # 1.7 K/mm3 (0.7-4.5); Lymphocytes % 13.8 % (10-50); Mean Corpuscular HGB Conc 32.7 g/dL (31.8-35.4); Mean Corpuscular Hemoglobin 29.1 pg (27.0-31.2); Mean Corpuscular Volume 88.9 fl (81-99); Mean Platelet Volume 7.2 fl (7.4-10.4); Monocytes # 0.7 K/mm3 (0.1-1.0); Neutrophils # 9.7 K/mm3 (1.8-7.8); Neutrophils % 77.8 % (37.0-80.0); Platelet Count 391 K/mm3 (142-424); Red Blood Count 5.25 M/mm3 (4.20-5.40); Red Cell Distribution Width 13.5 % (11.5-17.5); White Blood Count 12.4 K/mm3 (4.8-10.8)
[2023-01-08 09:22] LABS: Chloride 102 mmol/L (98-107)
[2023-01-08 09:23] LABS: Potassium 4.5 mmoL/L (3.5-5.1); Sodium 137 mmol/L (136-145)
[2023-01-08 09:25] LABS: Alanine Aminotransferase 21 U/L (12-78); Alkaline Phosphatase 109 U/L (38-126); Anion Gap 13.5 mEq/L (5-15); Aspartate Amino Transferase 23 U/L (14-36); Bilirubin,Total 0.4 mg/dl (0.2-1.3); Blood Urea Nitrogen 24 mg/dl (7-17); Carbon Dioxide 26 mmol/L (22.0-30.0); Creatinine Clearance Estimated 75 mL/min (50-200); Estimated Glomerular Filt Rate 75 ml/min (>60); GFR (African American) 90 ML/MIN (>60)
[2023-01-08 09:26] LABS: Albumin Level 4.3 g/dl (3.5-5.0); Albumin/Globulin Ratio 1.2 (1.1-1.8); Calcium 9.7 mg/dl (8.4-10.2); Globulin 3.5 g/dL (1.3-3.2); Glucose 120 mg/dl (74-100); Total Protein,Serum 7.8 g/dl (6.3-8.2)
[2023-01-08 09:35] VITALS: BP 109/73; PULSE 85; RESP 16; O2SAT 98
[2023-01-08 09:47] LABS: Microscopic, Urine URINE MICROSCOPIC (MICROSCOPIC)
[2023-01-08 09:55] LABS: Appearance,Urine CLEAR (Clear); Bilirubin,Urine Negative (Negative); Blood, Urine 3+ (Negative); Color,Urine YELLOW (Yellow); Glucose,Urine (UA) Negative (Negative); Ketones,Urine Negative (Negative); Leukocyte Esterase,Urine 2+ (Negative); Nitrate,Urine POSITIVE (Negative); Protein,Urine 2+ (Negative); Urobilinogen,Urine 0.2 EU/dl (0.2)
[2023-01-08 10:00] VITALS: BP 122/80; PULSE 81; O2SAT 95
--- NOTE | 2023-01-08 10:08 | PC.NURSE ---
Rounded on patient; nothing need at this time. Call edwards within reach of patient
[2023-01-08 10:11] LABS: Bacteria,Urine 1+ /lpf
[2023-01-08 10:30] VITALS: BP 126/75; PULSE 80; O2SAT 96
[2023-01-08 10:46] LABS: Lipase 66 U/L (23-300)
[2023-01-08 10:55] VITALS: BP 126/75; PULSE 81; RESP 16; TEMP 37; O2SAT 95
== END 2023-01-08 10:51 | disposition home or self-care (01) ==
PROVIDERS: Emergency Provider Emergency Medicine
DX: N12 Tubulo-interstitial nephritis, not specified as acute or chronic (principal); F17.200 Nicotine dependence, unspecified, uncomplicated
CPT/HCPCS: 80053; 81001; 83690; 85025; 87086; 87088; 87186; 96374; 99284; 99285; J0696

== ENCOUNTER 2023-02-04 18:29 | Emergency (ER) | payer MEDICAID, SELFPAY ==
[2023-02-04 18:22] VITALS: BP 128/77; PULSE 81; RESP 17; TEMP 37.3; O2SAT 95; BMI 23.6
--- NOTE | 2023-02-04 18:22 | HMH.EDGENADL ---
Discharge Plan Disposition Patient Disposition: Still a Patient Chief Complaint: Altered Mental Status Prescriptions Prescriptions: No Action azithromycin 500 MG tablet 500 mg PO DAILY Qty: 3 0RF ibuprofen 800 MG tablet 800 mg PO TIDP PRN (Reason: Moderate Pain) Qty: 20 0RF cyclobenzaprine 10 MG tablet 10 mg PO BIDP PRN (Reason: Moderate Pain) Qty: 20 0RF ciprofloxacin HCl 500 mg tablet 500 mg PO BID Qty: 20 0RF Clinical Impressions Clinical Impression: Drug-induced encephalopathy Instructions Patient Instructions: DI for Altered Mental Status Discharge ED Provider: Nati Roca General Adult HPI General Chief complaint: Altered Mental Status Stated complaint: DIFFICULTY BREATHING Time Seen by Provider: 02/04/23 18:22 History of Present Illness HPI narrative: 52-year-old female presenting with generalized weakness and altered mental status. Initially she gave multiple different stories but her in the room told me that he witnessed her snorting a lot of something at a [employer] late last night and since that time she has been acting abnormally. When confronted about this she admitted to this and told me she snorted something but is not sure exactly but this was. She states she has been feeling abnormal since that time and there is the same symptoms that she presents with today. She slept all night long and actually slept till 1:30 PM and was late for work and try to go to work and at that point was very weak and had to call EMS secondary to generalized weakness and altered mental status. She denies any alcohol or intentional ingestion in the setting of suicidal attempt. Related Data Previous Rx's Medication Instructions Recorded cyclobenzaprine 10 mg tablet 10 mg PO BIDP PRN Moderate Pain 06/04/20 #20 tabs ibuprofen 800 mg tablet 800 mg PO TIDP PRN Moderate Pain 06/04/20 #20 tabs azithromycin 500 mg tablet 500 mg PO DAILY #3 tabs 08/25/21 ciprofloxacin HCl 500 mg tablet 500 mg PO BID #20 tabs 01/08/23 Allergies Allergy/AdvReac Type Severity Reaction Status Date / Time Penicillins [PENICILLINS] Allergy Intermediate I-HIVES Verified 09/29/18 13:51 [facility] Disclaimer: The information contained in this section may have been updated after the patient was seen, as this information can be updated by other users. Social History Smoking Status: Current every day smoker tobacco type: cigarettes packs per day: 1 second hand exposure: No alcohol intake: never substance use type: denies use current occupational status: unemployed Travel in the last 8 weeks: None household members: family and children housing: house current occupational exposures/hazards: No caffeine: Yes ROS Obtained: Yes All systems reviewed & no additional complaints except as documented Physical Exam General General appearance: alert Respiratory Respiratory exam: Present normal lung sounds bilaterally; Absent respiratory distress Cardiovascular Cardiovascular exam: Present regular rate Neurological Exam Neurological exam: Present alert and oriented X3 Medical Decision Making Stas Inquiry Pt receiving controlled substance: No Vital Signs: 02/04/23 18:22 Temperature 99.1 F Temperature Source Oral Pulse Rate [Left Radial] 81 Respiratory Rate 17 Blood Pressure [Right Arm] 128/77 Blood Pressure Mean [Right Arm] 94 Blood Pressure Source [Right Arm] Automatic Cuff Blood Pressure Position [Right Arm] Sitting 02 Sat by Pulse Oximetry 95 Oxygen Delivery Method Room Air Lab Data Lab results reviewed: Yes I reviewed the patient's lab results. Lab Results 02/04/23 17:55: WBC 17.0 H, RBC 4.70, Hgb 13.4, Hct 40.9, MCV 87.0, MCH 28.6, MCHC 32.9, RDW 13.7, Plt Count 325, MPV 7.7, Neut % (Auto) 84.7 H, Lymph % (Auto) 10.3, [place] % (Auto) 4.2, Eos % (Auto) 0.5, Baso % (Auto) 0.2, Neut # (Auto) 14.4 H, Lymph # (Auto) 1.8, [place] # (Auto) 0.7, Eos # (Auto) 0.1, Baso # (Auto
--- NOTE | 2023-02-04 18:23 | PC.NURSE ---
MD asked to come to bedside to evaluate pt
--- NOTE | 2023-02-04 18:31 | XR_ITS ---
PROCEDURE INFORMATION: Exam: XR Chest Exam date and time: 02/04/2023 6:33 PM Age: 52 years old Clinical indication: Pain; Angina pectoris; Additional info: Chest pain started at work TECHNIQUE: Imaging protocol: Radiologic exam of the chest. Views: 1 view. Total images: 1 COMPARISON: CR CXR2V XR chest 2V 09/20/2018 9:13 AM FINDINGS: Tubes, catheters and devices: EKG leads are present. Lungs: Nonspecific patchy area of acute ground-glass and interstitial opacity in the right upper lung. Left lung is clear. No pulmonary vascular congestion or interstitial edema. Pleural spaces: Unremarkable. No pleural effusion. No pneumothorax. Heart/Mediastinum: Unremarkable. No cardiomegaly. No mediastinal widening or hilar enlargement. Bones/joints: Unremarkable. IMPRESSION: Nonspecific mild patchy acute ground-glass and interstitial infiltrate right upper lung.
--- NOTE | 2023-02-04 18:32 | ECG_ITS ---
APPROVED REPORT Exam: Resting ECG HR:72 bpm ECG Measurements Heart Rate 72 AXES CA 145 P 63 QRSd 102 QRS 10 QT 391 T 8 QTc 415 Conclusion SINUS RHYTHM NONSPECIFIC ST & T-WAVE ABNORMALITY BORDERLINE ECG UNCONFIRMED REPORT Electronically signed by : Roe Hernandez MD 02/04/2023 21:10:56
[2023-02-04 18:41] LABS: Chloride 105 mmol/L (98-107); Potassium 3.9 mmoL/L (3.5-5.1); Sodium 136 mmol/L (136-145)
[2023-02-04 18:43] LABS: Alanine Aminotransferase 27 U/L (12-78); Alkaline Phosphatase 108 U/L (38-126); Aspartate Amino Transferase 31 U/L (14-36); Bilirubin,Total 0.5 mg/dl (0.2-1.3); Blood Urea Nitrogen 17 mg/dl (7-17); Creatinine Clearance Estimated 85 mL/min (50-200); Estimated Glomerular Filt Rate 87 ml/min (>60); GFR (African American) 106 ML/MIN (>60)
[2023-02-04 18:44] LABS: Albumin Level 4.2 g/dl (3.5-5.0); Albumin/Globulin Ratio 1.2 (1.1-1.8); Anion Gap 11.9 mEq/L (5-15); Calcium 8.8 mg/dl (8.4-10.2); Carbon Dioxide 23 mmol/L (22.0-30.0); Globulin 3.4 g/dL (1.3-3.2); Glucose 105 mg/dl (74-100); Total Protein,Serum 7.6 g/dl (6.3-8.2)
--- NOTE | 2023-02-04 18:45 | CT_ITS ---
PROCEDURE INFORMATION: Exam: CT Head Without Contrast Exam date and time: 02/04/2023 6:54 PM Age: 52 years old Clinical indication: Altered mental status/memory loss; Additional info: AMS TECHNIQUE: Imaging protocol: Computed tomography of the head without contrast. Total images: 271 Radiation optimization: All CT scans at this facility use at least one of these dose optimization techniques: automated exposure control; mA and/or kV adjustment per patient size (includes targeted exams where dose is matched to clinical indication); or iterative reconstruction. REPORTING DATA: Count of CT and Cardiac NM exams in prior 12 months: This patient has received 0 known CTs and 0 known cardiac nuclear medicine studies in the 12 months prior to the current study. COMPARISON: No relevant prior studies available. FINDINGS: Brain: Normal. No hemorrhage. Unremarkable white matter. No mass effect. The bowser-white interface is maintained. Cerebral ventricles: No ventriculomegaly. Paranasal sinuses: Minor mucosal thickening bilateral maxillary sinuses. No air-fluid levels. Mastoid air cells: Visualized mastoid air cells are well aerated. Bones/joints: Unremarkable. No acute fracture. Soft tissues: Unremarkable. Vasculature: Mild calcifications bilateral intracranial internal carotid arteries. IMPRESSION: No acute intracranial process.
--- NOTE | 2023-02-04 18:46 | PC.NURSE ---
pt asked pt if she took anything and pt reported snorting something last night stated she is unsure what it was
[2023-02-04 18:56] LABS: Troponin I < 0.01 ng/ml (0.00-0.034)
[2023-02-04 19:01] LABS: Magnesium 2.1 mg/dl (1.6-2.3); Phosphorous 3.6 mg/dl (2.5-4.5)
[2023-02-04 19:11] LABS: Ethyl Alcohol < 10 mg/dl (0-10)
[2023-02-04 19:25] LABS: Basophils % 0.2 % (0.1-2.0); Eosinophils # 0.1 K/mm3 (0.0-0.4); Eosinophils % 0.5 % (0.1-12.0); Hematocrit 40.9 % (37.0-47.0); Hemoglobin 13.4 g/dL (12.2-16.2); Lymphocytes # 1.8 K/mm3 (0.7-4.5); Lymphocytes % 10.3 % (10-50); Mean Corpuscular HGB Conc 32.9 g/dL (31.8-35.4); Mean Corpuscular Hemoglobin 28.6 pg (27.0-31.2); Mean Platelet Volume 7.7 fl (7.4-10.4); Monocytes # 0.7 K/mm3 (0.1-1.0); Monocytes % 4.2 % (1.7-9.3); Neutrophils # 14.4 K/mm3 (1.8-7.8); Neutrophils % 84.7 % (37.0-80.0); Platelet Count 325 K/mm3 (142-424); Red Cell Distribution Width 13.7 % (11.5-17.5)
[2023-02-04 19:28] LABS: MANUAL DIFFERENTIAL MANUAL DIFFERENTIAL (MANUAL DIFF)
[2023-02-04 19:43] LABS: Eosinophils % 1 % (0-3); Lymphocytes % 8 % (10-50); Monocytes % 3 % (2-9); Neutrophils % 88 % (42-76); Platelet Estimate Normal; RBC Morphology Normal; Total Cells Counted 100
[2023-02-04 20:04] VITALS: BP 124/76; PULSE 79; RESP 17; TEMP 37.2; O2SAT 95
== END 2023-02-04 20:17 | disposition home or self-care (01) ==
PROVIDERS: Emergency Provider Student in an Organized Health Care Education/Training Program
DX: G92.8 Other toxic encephalopathy (principal); R53.1 Weakness; R41.82 Altered mental status, unspecified; F17.210 Nicotine dependence, cigarettes, uncomplicated
CPT/HCPCS: 70450; 71045; 80053; 83735; 84100; 84484; 85007; 85025; 93005; 96361; 96374; 99285; J2405

== ENCOUNTER 2023-10-14 14:05 | Emergency (ER) | payer MEDICAID, SELFPAY ==
[2023-10-14] VITALS (8 sets, daily range): BP systolic 102–120; BP diastolic 64–92; PULSE 71–86; RESP 15–18; TEMP 36.6; O2SAT 96–99; BMI 25.0
--- NOTE | 2023-10-14 14:27 | ED_ITS ---
<Statement entered by Nati Roca MD - 10/14/23 23:02> I was consulted by the MARIA G, and we discussed the complexity of the problems being addressed. I approved the treatment and management plan for this patient's care in the emergency department, thus performing a substantive portion of the medical decision making. Nati Roca MD, ALE, FACEP Discharge Plan Disposition Patient Disposition: Home, Self-Care Condition: Good Prescriptions Prescriptions: No Action azithromycin 500 MG tablet 500 mg PO DAILY Qty: 3 0RF ibuprofen 800 MG tablet 800 mg PO TIDP PRN (Reason: Moderate Pain) Qty: 20 0RF cyclobenzaprine 10 MG tablet 10 mg PO BIDP PRN (Reason: Moderate Pain) Qty: 20 0RF ciprofloxacin HCl 500 mg tablet 500 mg PO BID Qty: 20 0RF Referrals Follow up/Referrals: Golden Gomez DO [Staff Physician] - See instructions Provider,MD Iris [Primary Care Provider] - See instructions Activity Restrictions/Add. Instructions Additional Instructions/Restrictions: Please call and make an appointment in the morning for the earliest available appointment with Dr. Gomez. Please take 1000 mg of Tylenol every 8 hours as needed for pain. Return to ER for PCP for any change or worsening in symptoms or condition. Clinical Impressions Clinical Impression: Hemarthrosis Joint effusion of knee Qualifiers: Laterality: left Qualified Code(s): M25.462 - Effusion, left knee Stand Alone Forms Stand Alone Forms: Work/School Release Discharge ED Provider: Jonathan Azevedo General Adult HPI <SNEHA Ladd - Last Filed: 10/14/23 22:58> General Chief complaint: Extremity Problem,Nontraumatic Stated complaint: Left knee swelling Time Seen by Provider: 10/14/23 14:21 History of Present Illness HPI narrative: Patient presents for evaluation of left knee pain and swelling. Patient states that she has had increasing and constant knee pain throughout the day while at work. Patient denies any trauma. Patient denies any previous significant past medical history and is on no home medications. He states the pain is located inside the joint and along the left joint line. Related Data Previous Rx's Medication Instructions Recorded cyclobenzaprine 10 mg tablet 10 mg PO BIDP PRN Moderate Pain 06/04/20 #20 tabs ibuprofen 800 mg tablet 800 mg PO TIDP PRN Moderate Pain 06/04/20 #20 tabs azithromycin 500 mg tablet 500 mg PO DAILY #3 tabs 08/25/21 ciprofloxacin HCl 500 mg tablet 500 mg PO BID #20 tabs 01/08/23 Allergies Allergy/AdvReac Type Severity Reaction Status Date / Time Penicillins [PENICILLINS] Allergy Intermediate I-HIVES Verified 09/29/18 13:51 PFSH <SNEHA Ladd - Last Filed: 10/14/23 22:58> [facility] Disclaimer: The information contained in this section may have been updated after the patient was seen, as this information can be updated by other users. Social History Smoking Status: Current every day smoker tobacco type: cigarettes packs per day: 1 second hand exposure: No alcohol intake: never substance use type: denies use current occupational status: unemployed Travel in the last 8 weeks: None household members: family and children housing: house current occupational exposures/hazards: No caffeine: Yes <SNEHA Ladd - Last Filed: 10/14/23 22:58> ROS Obtained: Yes Systems reviewed as appropriate & no additional complaints except as documented Physical Exam <SNEHA Ladd - Last Filed: 10/14/23 22:58> General General appearance: alert and in no apparent distress Respiratory Respiratory exam: Present normal lung sounds bilaterally Cardiovascular Cardiovascular exam: Present regular rate and normal rhythm Neurological Exam Neurological exam: Present alert and oriented X3 Other Other exam information: 3 unaffected extremities intact grossly exam full range of motion nontender to palpation. The left lower extremity shows some nonfocal joint swelling along with some redness located at the lateral aspect inferiorly to the joint line but no evidence of induration or fluctuance. Patient has no patellar ballottement. Stressing of the joint causes tenderness to the patient however there is no anterior drawer sign and no laxity to testing. Medical Decision Making <SNEHA Ldad Last Filed: 10/14/23 22:58> Medical Records Medical records reviewed: Yes I reviewed the patient's medical records. [facility] Inquiry Pt receiving controlled substance: No Vital Signs: 10/14/23 14:07 10/14/23 18:58 10/14/23 19:00 Temperature 97.9 F Temperature Source Oral Pulse Rate 79 78 Pulse Rate [Radial] 79 Respiratory Rate 18 18 15 Blood Pressure 114/92 H 120/64 Blood Pressure [Left Arm] 109/69 L Blood Pressure Mean 83 Blood Pressure Mean [Left Arm] 82 Blood Pressure Source Blood Pressure Source [Left Arm] Automatic Cuff Blood Pressure Position Blood Pressure Position [Left Arm] Sitting 02 Sat by Pulse Oximetry 99 97 97 Oxygen Delivery Method Room Air 10/14/23 20:00 10/14/23 21:00 10/14/23 22:00 Temperature Temperature Source Pulse Rate 86 80 81 Pulse Rate [Radial] Respiratory Rate Blood Pressure 110/74 104/69 L 119/74 Blood Pressure [Left Arm] Blood Pressure Mean 83 80 86 Blood Pressure Mean [Left Arm] Blood Pressure Source Blood Pressure Source [Left Arm] Blood Pressure Position Blood Pressure Position [Left Arm] 02 Sat by Pulse Oximetry 96 96 97 Oxygen Delivery Method Room Air Room Air 10/14/23 23:00 10/14/23 23:08 Temperature 97.9 F Temperature Source Oral Pulse Rate 71 77 Pulse Rate [Radial] Respiratory Rate 16 Blood Pressure 102/70 L 102/70 L Blood Pressure [Left Arm] Blood Pressure Mean 76 Blood Pressure Mean [Left Arm] Blood Pressure Source Automatic Cuff Blood Pressure Source [Left Arm] Blood Pressure Position Supine Blood Pressure Position [Left Arm] 02 Sat by Pulse Oximetry 96 Oxygen Delivery Method Room Air Lab Data Lab results reviewed: Yes I reviewed the patient's lab results. Lab Results 10/14/23 15:00: WBC 7.3, RBC 4.84, Hgb 15.0, Hct 44.6, MCV 92.2, MCH 31.0, MCHC 33.6, RDW 13.6, Plt Count 345, MPV 7.3 L, Neut % (Auto) 61.9, Lymph % (Auto) 26.5, [place] % (Auto) 5.8, Eos % (Auto) 4.4, Baso % (Auto) 1.4, Neut # (Auto) 4.5, Lymph # (Auto) 1.9, [place] # (Auto) 0.4, Eos # (Auto) 0.3, Baso # (Auto) 0.1, ESR 14, Sodium 136, Potassium 4.0, Chloride 105, Carbon Dioxide 29, Anion Gap 6.0, B UN 19 H, Creatinine 0.70, Estimated Creat Clear 89, Estimated GFR 87, Est GFR ( Amer) 105, Glucose 93, Uric Acid 4.3, Calcium 9.3, C-Reactive Protein 10.8 H 10/14/23 16:10: Fluid Source , Fluid Volume 3.0, Fluid Appearance Cloudy, Fluid RBC (Auto) 109424, Fld Tot Nucleated Cell 974, Fld Polynuclear WBCs % , Fld Mononuclear WBCs % , Synovial Crystals Comment 10/14/23 15:00 10/14/23 15:00 Orders (Tests/Meds): ED MEDICATIONS Discontinued Medications Generic Name Dose Route Start Last Admin Trade Name Cici PRN Reason Stop Dose Admin Acetaminophen 1,000 mg 10/14/23 14:30 10/14/23 15:02 Acetaminophen 500mg Tab PO 10/14/23 14:31 1,000 mg ONCE ONE Administration Ketorolac Tromethamine 15 mg 10/14/23 14:30 10/14/23 15:02 Ketorolac 30mg/Ml Vial IV 10/14/23 14:31 15 mg ONCE ONE Administration ORDERS Category Date Time Status Knee XR left 3 views [XR knee LT 3V] Stat Exams 10/14/23 14:29 Completed BMP [Basic Metabolic Panel] Stat Lab 10/14/23 15:00 Completed Body Fluid: Cell Count w/ Diff Routine Lab 10/14/23 16:10 Completed CBC w/Auto Diff [Complete Blood Count Auto Diff] Stat Lab 10/14/23 15:00 Completed CRP [C-Reactive Protein] Stat Lab 10/14/23 15:00 Completed Erythrocyte Sedimentation Rate Stat Lab 10/14/23 15:00 Completed Uric Acid Stat Lab 10/14/23 15:00 Completed Medical Decision Narrative: In summary patient is a 3-year-old female who presents to the emergency department for evaluation of left knee pain. Patient is hemodynamically stable upon arrival, afebrile. Physical exam is remarkable for tenderness and swelling of the left knee joint with some redness located at the lateral aspect of the joint line but no induration or fluctuance noted. Joint appears stable however is tender to manipulation.. Differential diagnosis includes joint effusion versus osteoarthritis versus gout versus septic joint etc. Initial workup will be conducted with hematologic labs and plain film x-ray. Initial interventions include Toradol acetaminophen. Initial workup reviewed by me shows normal white count with no shift normal sed rate slightly elevated CRP and the remainder of her laboratory investigations were nonactionable including negative uric acid and my informal interpretation of her plain film x-ray shows small joint effusion but no acute bony abnormality. Patient had aspiration of synovial fluid that was bloody by Dr. Roca and subsequently the patient was placed in observation status at 1636. Medical necessity for observational status is awaiting synovial fluid analysis. The patient was provided serial reevaluations and cardiac monitoring while awaiting results. [Results of testing during observation remarkable for:]. [Because of these results I feel the patient can be discharged with follow-up with her PCP versus I feel the patient requires admission due to]. Total time in observation was [total time]. Care will be transitioned to Dr. Maria Fernanda Martinez at 11 PM as we are still awaiting synovial fluid analysis from the outside facility. <Nati Roca MD - Last Filed: 10/14/23 16:16> Vital Signs: 10/14/23 14:07 10/14/23 18:58 10/14/23 19:00 Temperature 97.9 F Temperature Source Oral Pulse Rate 79 78 Pulse Rate [Radial] 79 Respiratory Rate 18 18 15 Blood Pressure 114/92 H 120/64 Blood Pressure [Left Arm] 109/69 L Blood Pressure Mean 83 Blood Pressure Mean [Left Arm] 82 Blood Pressure Source Blood Pressure Source [Left Arm] Automatic Cuff Blood Pressure Position Blood Pressure Position [Left Arm] Sitting 02 Sat by Pulse Oximetry 99 97 97 Oxygen Delivery Method Room Air 10/14/23 20:00 10/14/23 21:00 10/14/23 22:00 Temperature Temperature Source Pulse Rate 86 80 81 Pulse Rate [Radial] Respiratory Rate Blood Pressure 110/74 104/69 L 119/74 Blood Pressure [Left Arm] Blood Pressure Mean 83 80 86 Blood Pressure Mean [Left Arm] Blood Pressure Source Blood Pressure Source [Left Arm] Blood Pressure Position Blood Pressure Position [Left Arm] 02 Sat by Pulse Oximetry 96 96 97 Oxygen Delivery Method Room Air Room Air 10/14/23 23:00 10/14/23 23:08 Temperature 97.9 F Temperature Source Oral Pulse Rate 71 77 Pulse Rate [Radial] Respiratory Rate 16 Blood Pressure 102/70 L 102/70 L Blood Pressure [Left Arm] Blood Pressure Mean 76 Blood Pressure Mean [Left Arm] Blood Pressure Source Automatic Cuff Blood Pressure Source [Left Arm] Blood Pressure Position Supine Blood Pressure Position [Left Arm] 02 Sat by Pulse Oximetry 96 Oxygen Delivery Method Room Air Lab Data Lab Results 10/14/23 15:00: WBC 7.3, RBC 4.84, Hgb 15.0, Hct 44.6, MCV 92.2, MCH 31.0, MCHC 33.6, RDW 13.6, Plt Count 345, MPV 7.3 L, Neut % (Auto) 61.9, Lymph % (Auto) 26.5, [place] % (Auto) 5.8, Eos % (Auto) 4.4, Baso % (Auto) 1.4, Neut # (Auto) 4.5, Lymph # (Auto) 1.9, [place] # (Auto) 0.4, Eos # (Auto) 0.3, Baso # (Auto) 0.1, ESR 14, Sodium 136, Potassium 4.0, Chloride 105, Carbon Dioxide 29, Anion Gap 6.0, B UN 19 H, Creatinine 0.70, Estimated Creat Clear 89, Estimated GFR 87, Est GFR ( Amer) 105, Glucose 93, Uric Acid 4.3, Calcium 9.3, C-Reactive Protein 10.8 H 10/14/23 16:10: Fluid Source , Fluid Volume 3.0, Fluid Appearance Cloudy, Fluid RBC (Auto) 949526, Fld Tot Nucleated Cell 974, Fld Polynuclear WBCs % , Fld Mononuclear WBCs % , Synovial Crystals Comment Orders (Tests/Meds): ED MEDICATIONS Discontinued Medications Generic Name Dose Route Start Last Admin Trade Name Freq PRN Reason Stop Dose Admin Acetaminophen 1,000 mg 10/14/23 14:30 10/14/23 15:02 Acetaminophen 500mg Tab PO 10/14/23 14:31 1,000 mg ONCE ONE Administration Ketorolac Tromethamine 15 mg 10/14/23 14:30 10/14/23 15:02 Ketorolac 30mg/Ml Vial IV 10/14/23 14:31 15 mg ONCE ONE Administration ORDERS Category Date Time Status Knee XR left 3 views [XR knee LT 3V] Stat Exams 10/14/23 14:29 Completed BMP [Basic Metabolic Panel] Stat Lab 10/14/23 15:00 Completed Body Fluid: Cell Count w/ Diff Routine Lab 10/14/23 16:10 Completed CBC w/Auto Diff [Complete Blood Count Auto Diff] Stat Lab 10/14/23 15:00 Completed CRP [C-Reactive Protein] Stat Lab 10/14/23 15:00 Completed Erythrocyte Sedimentation Rate Stat Lab 10/14/23 15:00 Completed Uric Acid Stat Lab 10/14/23 15:00 Completed <Jonathan Azevedo MD - Last Filed: 10/15/23 15:14> Vital Signs: 10/14/23 14:07 10/14/23 18:58 10/14/23 19:00 Temperature 97.9 F Temperature Source Oral Pulse Rate 79 78 Pulse Rate [Radial] 79 Respiratory Rate 18 18 15 Blood Pressure 114/92 H 120/64 Blood Pressure [Left Arm] 109/69 L Blood Pressure Mean 83 Blood Pressure Mean [Left Arm] 82 Blood Pressure Source Blood Pressure Source [Left Arm] Automatic Cuff Blood Pressure Position Blood Pressure Position [Left Arm] Sitting 02 Sat by Pulse Oximetry 99 97 97 Oxygen Delivery Method Room Air 10/14/23 20:00 10/14/23 21:00 10/14/23 22:00 Temperature Temperature Source Pulse Rate 86 80 81 Pulse Rate [Radial] Respiratory Rate Blood Pressure 110/74 104/69 L 119/74 Blood Pressure [Left Arm] Blood Pressure Mean 83 80 86 Blood Pressure Mean [Left Arm] Blood Pressure Source Blood Pressure Source [Left Arm] Blood Pressure Position Blood Pressure Position [Left Arm] 02 Sat by Pulse Oximetry 96 96 97 Oxygen Delivery Method Room Air Room Air 10/14/23 23:00 10/14/23 23:08 Temperature 97.9 F Temperature Source Oral Pulse Rate 71 77 Pulse Rate [Radial] Respiratory Rate 16 Blood Pressure 102/70 L 102/70 L Blood Pressure [Left Arm] Blood Pressure Mean 76 Blood Pressure Mean [Left Arm] Blood Pressure Source Automatic Cuff Blood Pressure Source [Left Arm] Blood Pressure Position Supine Blood Pressure Position [Left Arm] 02 Sat by Pulse Oximetry 96 Oxygen Delivery Method Room Air Lab Data Lab Results 10/14/23 15:00: WBC 7.3, RBC 4.84, Hgb 15.0, Hct 44.6, MCV 92.2, MCH 31.0, MCHC 33.6, RDW 13.6, Plt Count 345, MPV 7.3 L, Neut % (Auto) 61.9, Lymph % (Auto) 26.5, [place] % (Auto) 5.8, Eos % (Auto) 4.4, Baso % (Auto) 1.4, Neut # (Auto) 4.5, Lymph # (Auto) 1.9, [place] # (Auto) 0.4, Eos # (Auto) 0.3, Baso # (Auto) 0.1, ESR 14, Sodium 136, Potassium 4.0, Chloride 105, Carbon Dioxide 29, Anion Gap 6.0, B UN 19 H, Creatinine 0.70, Estimated Creat Clear 89, Estimated GFR 87, Est GFR ( Amer) 105, Glucose 93, Uric Acid 4.3, Calcium 9.3, C-Reactive Protein 10.8 H 10/14/23 16:10: Fluid Source , Fluid Volume 3.0, Fluid Appearance Cloudy, Fluid RBC (Auto) [id number], Fld Tot Nucleated Cell 974, Fld Polynuclear WBCs % , Fld Mononuclear WBCs % , Synovial Crystals Comment Orders (Tests/Meds): ED MEDICATIONS Discontinued Medications Generic Name Dose Route Start Last Admin Trade Name Chapoq PRN Reason Stop Dose Admin Acetaminophen 1,000 mg 10/14/23 14:30 10/14/23 15:02 Acetaminophen 500mg Tab PO 10/14/23 14:31 1,000 mg ONCE ONE Administration Ketorolac Tromethamine 15 mg 10/14/23 14:30 10/14/23 15:02 Ketorolac 30mg/Ml Vial IV 10/14/23 14:31 15 mg ONCE ONE Administration ORDERS Category Date Time Status Knee XR left 3 views [XR knee LT 3V] Stat Exams 10/14/23 14:29 Completed BMP [Basic Metabolic Panel] Stat Lab 10/14/23 15:00 Completed Body Fluid: Cell Count w/ Diff Routine Lab 10/14/23 16:10 Completed CBC w/Auto Diff [Complete Blood Count Auto Diff] Stat Lab 10/14/23 15:00 Completed CRP [C-Reactive Protein] Stat Lab 10/14/23 15:00 Completed Erythrocyte Sedimentation Rate Stat Lab 10/14/23 15:00 Completed Uric Acid Stat Lab 10/14/23 15:00 Completed Medical Decision Narrative: In summary patient is a 53-year-old female who presents to the emergency department for evaluation of left knee pain. Patient is hemodynamically stable upon arrival, afebrile. Physical exam is remarkable for tenderness and swelling of the left knee joint with some redness located at the lateral aspect of the joint line but no induration or fluctuance noted. Joint appears stable however is tender to manipulation.. Differential diagnosis includes joint effusion versus osteoarthritis versus gout versus septic joint etc. Initial workup will be conducted with hematologic labs and plain film x-ray. Initial interventions include Toradol acetaminophen. Initial workup reviewed by me shows normal white count with no shift normal sed rate slightly elevated CRP and the remainder of her laboratory investigations were nonactionable including negative uric acid and my informal interpretation of her plain film x-ray shows small joint effusion but no acute bony abnormality. Patient had aspiration of synovial fluid that was bloody by Dr. Roca and subsequently the patient was placed in observation status at 1636. Medical necessity for observational status is awaiting synovial fluid analysis. The patient was provided serial reevaluations and cardiac monitoring while awaiting results. [Results of testing during observation remarkable for:]. [Because of these results I feel the patient can be discharged with follow-up with her PCP versus I feel the patient requires admission due to]. Total time in observation was [total time]. Care will be transitioned to Dr. Maria Fernanda Martinez at 11 PM as we are still awaiting synovial fluid analysis from the outside facility. Procedures <Nati Roca MD - Last Filed: 10/14/23 16:16> Joint Aspiration/Injection Joint Asp./Inject. 1: Time Out Performed: Yes Side of body: left Joint Aspirated: knee Skin Prep: Chlorhexidine Local Anesthetic: lidocaine 1% Amount of anesthesia used (mL): 5 Needle Size Used: 18G Fluid Obtained: bloody Total fluid obtained (mL): 15 Patient Tolerated Procedure: well Complications: none Critical Care <SNEHA Ladd - Last Filed: 10/14/23 22:58> Critical Care Time Critical Care Time: No
--- NOTE | 2023-10-14 14:29 | XR_ITS ---
FINAL REPORT CLINICAL HISTORY: Atraumatic left knee pain and swelling COMPARISON: None FINDINGS: LEFT KNEE: Three views of the left knee were obtained. There is no acute fracture or dislocation. Visualized joint spaces are normally aligned. There is a small joint effusion. Soft tissues are unremarkable. IMPRESSION: Small joint effusion without acute bony abnormality. Reviewed, Interpreted and Dictated by Red Harman III, MD Transcribed by Delicia Cohn Authenticated and [facility]
--- NOTE | 2023-10-14 14:41 | PC.NURSE ---
PT TO XR
--- NOTE | 2023-10-14 14:48 | PC.NURSE ---
PT RETURNED FROM XR
[2023-10-14] MEDS: KETOROLAC 30MG/ML VIAL 15 MG IV (15:02)
[2023-10-14] MEDS: ACETAMINOPHEN 500MG TAB 1000 MG PO (15:02)
[2023-10-14 15:15] LABS: Blood Urea Nitrogen 19 mg/dl (7-17); Calcium 9.3 mg/dl (8.4-10.2); Carbon Dioxide 29 mmol/L (22.0-30.0); Chloride 105 mmol/L (98-107); Creatinine Clearance Estimated 89 mL/min (50-200); Estimated Glomerular Filt Rate 87 ml/min (>60); GFR (African American) 105 ML/MIN (>60); Glucose 93 mg/dl (74-100); Sodium 136 mmol/L (136-145); Uric Acid 4.3 mg/dl (2.5-6.2)
[2023-10-14 15:20] LABS: C-Reactive Protein 10.8 mg/L (0-4)
--- NOTE | 2023-10-14 15:31 | PC.NURSE ---
MECHANICAL MAINTENANCE INSTRUCTOR CHECKING FOR POSSIBLE TRANSPORT OF SYNOVIAL FLUID
[2023-10-14 15:35] LABS: Erythrocyte Sedimentation Rate 14 mm/hr (0-30)
[2023-10-14 15:58] LABS: Basophils # 0.1 K/mm3 (0-0.2); Basophils % 1.4 % (0.1-2.0); Eosinophils # 0.3 K/mm3 (0.0-0.4); Eosinophils % 4.4 % (0.1-12.0); Hematocrit 44.6 % (37.0-47.0); Lymphocytes # 1.9 K/mm3 (0.7-4.5); Lymphocytes % 26.5 % (10-50); Mean Corpuscular HGB Conc 33.6 g/dL (31.8-35.4); Mean Corpuscular Volume 92.2 fl (81-99); Mean Platelet Volume 7.3 fl (7.4-10.4); Monocytes # 0.4 K/mm3 (0.1-1.0); Monocytes % 5.8 % (1.7-9.3); Neutrophils # 4.5 K/mm3 (1.8-7.8); Neutrophils % 61.9 % (37.0-80.0); Platelet Count 345 K/mm3 (142-424); Red Blood Count 4.84 M/mm3 (4.20-5.40); Red Cell Distribution Width 13.6 % (11.5-17.5); White Blood Count 7.3 K/mm3 (4.8-10.8)
--- NOTE | 2023-10-14 18:51 | PC.NURSE ---
PT PROVIDED SUPPER, UPDATED ON POC. CALL LIGHT WITHIN REACH
--- NOTE | 2023-10-14 21:11 | PC.NURSE ---
spoke with family at this time. pt and pts Family understands why pt is waiting on results.
--- NOTE | 2023-10-14 21:16 | PC.NURSE ---
pt jaylin arreola and dr ram at this time.
--- NOTE | 2023-10-14 22:01 | PC.NURSE ---
Per our lab. [facility] states results should be back in about 20-30 minutes. Pt and family updated.
[2023-10-15 00:22] LABS: Appearance,Body Fld. Cloudy; TNC,Body Fluid 974 cells/uL (< 1000)
[2023-10-15 00:23] LABS: RBC,Body Fluid 119000 cells/uL (< 10 X 10^3)
== END 2023-10-14 23:20 | disposition home or self-care (01) ==
PROVIDERS: Physician Assistant; Emergency Provider Emergency Medicine
DX: M25.062 Hemarthrosis, left knee (principal); M25.562 Pain in left knee; R22.42 Localized swelling, mass and lump, left lower limb; F17.210 Nicotine dependence, cigarettes, uncomplicated
CPT/HCPCS: 20610; 73562; 80048; 84550; 85025; 85651; 86140; 89051; 89060; 96374; 99285

== ENCOUNTER 2025-01-24 14:40 | Emergency (ER) | payer SELFPAY ==
[2025-01-24 14:47] VITALS: BP 139/78; PULSE 99; RESP 20; TEMP 36.5; O2SAT 100; BMI 26.9
--- OUTSIDE RECORDS SUMMARY | 2025-01-24 14:56 | XMS_ITS | Encounter Summary ---
Author Organization Healthcare Address [address] [id number] Care Team Providers Care Facilities Management Executive Name Role Phone Lorenzo Puri MD Primary Care Provider [phone] Encounter Details Date Type Department Care Team (Late st Contact Info) Description 10/14/2023 Lab Requisition [facility] [address] [place] [address] Jaswant Roca [address] [place] [address] Encounter for general adult medical examination without abnormal findings Social History Tobacco Use Types Packs/Day Years Used Date Smoking Tobacco: Every Day Alcohol Use Standard Drinks/Week Comments No 0 (1 standard drink = 0.6 oz pur e alcohol) Comments Unknown Sex and Gender Information Value Date Recorded Sex Assigned at Not on file Legal Sex Female 7:33 PM EDT Gender Identity Not on file Sexual Orientation Not on file documented as of this encounter Plan of Treatment Not on file documented as of this encounter Procedures Procedure Name Priority Date/Time Associated Diagnosis Comments BODY FLUID CELL COUNT W/ MANUAL DIFFERENTIAL Routine 10/14/2023 4:10 PM EDT Encounter for general adult medical examination without abnormal findings BODY FLUID, CYTOSPIN, PATHOLOGIST INTERPRETATION Routine 10/14/2023 4:10 PM EDT Encounter for general adult medical examination without abnormal findings JOINT FLUID CRYSTALS Routine 10/14/2023 4:10 PM EDT Encounter for general adult medical examination without abnormal findings documented in this encounter Results * Body fluid, cytospin, pathologist interpretation (10/14/2023 4:10 PM EDT) Specimen Type Joint Fluid 10/15/2023 5:30 PM EDT [facility] Specimen Source, Body Fluid 10/15/2023 5:30 PM EDT [facility] Clinical Diagnosis, Body Fluid No history provided 10/15/2023 5:30 PM EDT [facility] Interpretation, Body Fluid Bloody fluid A resident was involved in the service. I attest I examined the relevant preparations for the specimens and confirmed the diagnosis or interpretation. 10/15/2023 5:30 PM EDT [facility] Pathologist Signature, Body Fluid 10/15/2023 5:30 PM EDT [facility] Comment:Reviewed by: Delicia mosquera MD LAB CP ASR DISCLAIMER Yes 10/15/2023 5:30 PM EDT [facility] Joint Fluid 10/14/2023 4:10 PM EDT 10/14/2023 8:59 PM EDT us Jaswant Roca LAB BODY FLUIDS AND STOOLS ORDER NORA Final Result Performing Organization Address City/State/[facility] Co de Phone Number [facility] [address] [place] [address] * (ABNORMAL) Body Fluid Cell Count w/ Diff (10/14/2023 4:10 PM EDT) Color, Body fluid Red LAB HEMATOLOGY METHOD 10/14/2023 11:37 PM EDT [facility] Appearance, Body fluid Cloudy(A) LAB HEMATOLOGY METHOD 10/14/2023 11:37 PM EDT [facility] Volume, Body fluid 3.0 cc LAB HEMATOLOGY METHOD 10/14/2023 11:37 PM EDT [facility] Fluid Container SPECIMEN RECEIVED IN EDTA TUBE LAB HEMATOLOGY METHOD 10/14/2023 11:37 PM EDT [facility] Red Blood Cell Count, Body fluid 119,000 uL LAB HEMATOLOGY METHOD 10/14/2023 11:37 PM EDT [facility] Total Nucleated Cell Count, Body fluid 974 uL LAB HEMATOLOGY METHOD 10/14/2023 11:37 PM EDT [facility] Neutrophils %, Body fluid 76 % LAB HEMATOLOGY METHOD 10/14/2023 11:37 PM EDT [facility] Lymphocytes %, Body fluid 7 % LAB HEMATOLOGY METHOD 10/14/2023 11:37 PM EDT [facility] Monocytes/Macro phages %, Body fluid 16 % LAB HEMATOLOGY METHOD 10/14/2023 11:37 PM EDT [facility] Eosinophils %, Body fluid 1 % LAB HEMATOLOGY METHOD 10/14/2023 11:37 PM EDT [facility] Basophils %, Body fluid 0 % LAB HEMATOLOGY METHOD 10/14/2023 11:37 PM EDT [facility] Lining/Mesothel ial Cells %, Body fluid 0 % LAB HEMATOLOGY METHOD 10/14/2023 11:37 PM EDT [facility] Neutrophils Absolute (PMN), Body fluid 740 uL LAB HEMATOLOGY METHOD 10/14/2023 11:37 PM EDT [facility] Lymphocytes Absolute, Body fluid 68 uL LAB HEMATOLOGY METHOD 10/14/2023 11:37 PM EDT [facility] Monocytes/Macro phages Absolute, Body fluid 156 uL LAB HEMATOLOGY METHOD 10/14/2023 11:37 PM EDT [facility] Eosinophils Absolute, Body fluid 10 uL LAB HEMATOLOGY METHOD 10/14/2023 11:37 PM EDT [facility] Basophils Absolute, Body fluid 0 uL LAB HEMATOLOGY METHOD 10/14/2023 11:37 PM EDT [facility] Lining/Mesothel ial Cells Absolute, Body fluid 0 uL LAB HEMATOLOGY METHOD 10/14/2023 11:37 PM EDT [facility] Comment, Body fluid SEE NOTE LAB HEMATOLOGY METHOD 10/14/2023 11:37 PM EDT [facility] Comment:This is an appended report. These results have been appended to a previously preliminary verified report. Joint Fluid 10/14/2023 4:10 PM EDT 10/14/2023 8:59 PM EDT Jaswant Rudd Roca LAB BODY FLUIDS AND STOOLS ORDERABLES NO SPECIMEN TYPE/SOURCE Final Result [facility] [address] [place] [address] * Synovial fluid, crystal (10/14/2023 4:10 PM EDT) Crystals, Joint Fluid No Crystals Seen No Crystals Present 10/14/2023 10:17 PM EDT [facility] Joint Fluid 10/14/2023 4:10 PM EDT 10/14/2023 7:30 PM EDT us Jaswant Roca LAB BODY FLUIDS AND STOOLS ORDER NORA Final Result [facility] [address] [place] [address] documented in this encounter Visit Diagnoses Diagnosis Encounter for general adult medical examination without abnormal findings documented in this encounter Care Teams Facilities Management Executive Relationship Specialty Start Date End Date Lorenzo Puri MD [address] [place] [address] PCP - General 12/13/20 documented as of this encounter
--- OUTSIDE RECORDS SUMMARY | 2025-01-24 14:56 | XMS_ITS | Clinical Summary ---
Author Organization [facility] Address [address] [place] [address] Care Team Providers Care Convention Planner Name Role Phone Unavailable Primary Care Provider Unavailabl e Allergies Active Allergy Reactions Criticality Noted Date Comments Penicillins 09/27/2013 Medications predniSONE (DELTASONE) 10 MG tablet SIG: iii po BID x 2 days then ii po BID x 2 days then i po BID x 2 days then i po qd x 2 days 26 tablet 0 09/27/2013 Active methocarbamol (ROBAXIN-750) 750 MG tablet i po TID PRN 60 tablet 0 09/27/2013 Active ibuprofen (ADVIL;MOTRIN) 800 MG tablet Take 1 tablet by mouth 2 times daily as needed for Pain for 30 days. 60 tablet 0 01/30/2014 Active Active Problems Problem Noted Date Diagnosed Date Sprain of lumbar spine 12/26/2013 Family History Medical History Relation Name Comments Cancer Father Cancer Maternal Aunt Diabetes Paternal Grandmother Relation Name Status Comments Father Maternal Aunt Paternal Grandmother Social History Tobacco Use Types Packs/Day Years Used Date Smoking Tobacco: Every Day Cigarettes Tobacco Cessation:Counseling Given: Yes Alcohol Use Standard Drinks/Week Comments Not Asked 0 (1 standard drink = 0.6 oz pur e alcohol) Comments Unknown Sex and Gender Information Value Date Recorded Sex Assigned at Not on file Legal Sex Female 5:23 PM EDT Gender Identity Not on file Sexual Orientation Not on file Last Filed Vital Signs Vital Sign Reading Time Taken Comments Blood Pressure 113/67 01/30/2014 2:04 PM EDT Pulse 70 01/30/2014 2:04 PM EDT Temperature - - Respiratory Rate - - Oxygen Saturation 98% 01/30/2014 2:04 PM EDT Inhaled Oxygen Concentration - - Weight 51.7 kg (114 lb) 01/30/2014 2:04 PM EDT Height 157.5 cm (5' 2 ) 01/30/2014 2:04 PM EDT Body Mass Index 20.85 01/30/2014 2:04 PM EDT Plan of Treatment Not on file Insurance [employer]
--- OUTSIDE RECORDS SUMMARY | 2025-01-24 14:56 | XMS_ITS | Clinical Summary ---
Author Organization Healthcare Address [address] [place] [address] Care Team Providers Care Deputy Treasurer Name Role Phone Lorenzo Puri MD Primary Care Provider [phone] Social History Tobacco Use Types Packs/Day Years [...] Sign Reading Time Taken Comments Blood Pressure 118/77 02/11/2018 12:59 PM EDT Pulse 74 02/11/2018 12:59 PM EDT Temperature 35.7 C (96.3 F) 02/11/2018 12:59 PM EDT Respiratory Rate - - Oxygen Saturation - - Inhaled Oxygen Concentration - - Weight 44.4 kg (97 lb 14.2 oz) 02/11/2018 12:59 PM EDT Height 157.5 cm (5' 2 ) 02/11/2018 12:59 PM EDT Body Mass Index 17.9 02/11/2018 12:59 PM EDT Plan of Treatment Not on file Care Teams Deputy Treasurer Relationship Specialty Start Date End Date Lorenzo Puri MD [address] [place] [address] PCP - General 12/13/20
--- NOTE | 2025-01-24 14:58 | CA_ITS ---
FINAL REPORT TECHNIQUE: Multiple transverse and longitudinal images were performed of right the femoral-popliteal deep venous system with augmentation and compression maneuvers. CLINICAL HISTORY: redness, itching swelling of right foot FINDINGS: Right lower extremity duplex ultrasound demonstrates normal flow in the deep venous system. There is no abnormal echogenicity to suggest thrombus. There is normal compression and augmentation. IMPRESSION: No evidence of right DVT. Reviewed, Interpreted and Dictated by Zi Hodges MD Transcribed by Oanh Kate Authenticated and . [facility]
--- NOTE | 2025-01-24 15:02 | HMH.EDGENADL ---
Discharge Plan Disposition Patient Disposition: Home, Self-Care Prescriptions Prescriptions: New clindamycin HCl [Cleocin HCl] 300 mg capsule 300 mg PO BID 7 Days Qty: 14 0RF No Action azithromycin 500 MG tablet 500 mg PO DAILY Qty: 3 0RF ibuprofen 800 MG tablet 800 mg PO TIDP PRN (Reason: Moderate Pain) Qty: 20 0RF cyclobenzaprine 10 MG tablet 10 mg PO BIDP PRN (Reason: Moderate Pain) Qty: 20 0RF ciprofloxacin HCl 500 mg tablet 500 mg PO BID Qty: 20 0RF Referrals Follow up/Referrals: Provider,Referral, MD [Primary Care Provider, Medical] - See instructions Activity Restrictions/Add. Instructions Additional Instructions/Restrictions: Please call one of the primary care providers on the list that I gave you for follow-up very soon. Take the antibiotic as directed. Please elevate this leg is much as possible. Try to stay off of the right leg is much as possible. You may need further imaging and treatment other than the antibiotic. Follow-up with an the next 3 to 4 days. If you have any more problems or concerns please return to the ED or your PCP. Clinical Impressions Clinical Impression: Cellulitis, Edema Stand Alone Forms Stand Alone Forms: Work/School Release Instructions Patient Instructions: Cellulitis, Edema Print Language Print Language: Faroese Discharge ED Provider: Maria Fernanda Martinez General Adult HPI <Stefanie Enrique (ED), METER INSTALLER - Last Filed: 01/24/25 17:20> General Chief complaint: Skin/Abscess/Foreign Body Stated complaint: Pain, swelling, itching, redness to R leg Time Seen by Provider: 01/24/25 14:44 Mode of Arrival: Family Vehicle Source of Information: Patient and Medical Record Description of Symptoms (Recalled from ER Triage Doc. by RN): Pt c/o redness, ichting, swelling, and burning to RLE. States the sxs began approx 1 wk ago but wasn't this bad . States she has been using hydrocortisone cream to help with the itching. Denies any hx of dvt, pe's, dm, or cellultitis. History of Present Illness HPI narrative: 54-year-old female presents to the ED today with complaint of right lower extremity redness, itching, swelling for the past 2 weeks. She denies chest pain, shortness of breath no history of clots. She denies any health problems or concerns. She does complain that her family and work told her to come to the ED because this may be serious. Patient has no other complaints today. Related Data Previous Rx's ?Medication ?Instructions ?Recorded cyclobenzaprine 10 mg tablet 10 mg PO BIDP PRN Moderate Pain 06/04/20 #20 tabs ibuprofen 800 mg tablet 800 mg PO TIDP PRN Moderate Pain 06/04/20 #20 tabs azithromycin 500 mg tablet 500 mg PO DAILY #3 tabs 08/25/21 ciprofloxacin HCl 500 mg tablet 500 mg PO BID #20 tabs 01/08/23 clindamycin HCl 300 mg capsule 300 mg PO BID 7 days #14 caps 01/24/25 (Cleocin HCl) Allergies Allergy/AdvReac Type Severity Reaction Status Date / Time Penicillins (PENICILLINS) Allergy Intermediate I-HIVES Verified 09/29/18 13:51 [facility] <Stefanie Enrique (ED), METER INSTALLER - Last Filed: 01/24/25 17:20> [facility] Disclaimer: The information contained in this section may have been updated after the patient was seen, as this information can be updated by other users. Social History Smoking Status: Current every day smoker tobacco type: cigarettes packs per day: 1 second hand exposure: No alcohol intake: never substance use type: denies use current occupational status: unemployed Travel in the last 8 weeks?: None household members: family and children housing: house current occupational exposures/hazards: No caffeine: Yes Have you lived/traveled outside US in past 30 days?: No Contact w/someone who lives/traveled outside US past 30 days?: No Exposure to someone with infectious disease in past 14 days?: No Do you have a fever (greater than 100.4 F or 38 C)?: No Have you tested positive for COVID-19?: No Exposed to someone with COVID-19 in past 14 days?: No Do you have a sore throat?: No Do you have a cough?: No Do you have any weakness?: No Do you have any diarrhea?: No Are you experiencing any unusual bleeding?: No Do you have any muscle aches/pain?: Yes Do you have any abdominal pain?: No Are you experiencing loss of taste or smell?: No Other Medical History Have you received the Flu Vaccine for this season: No Have you received the Pneumonia Vaccine: No <Stefanie Enrique (ED), METER INSTALLER - Last Filed: 01/24/25 17:20> ROS Obtained: Yes Systems reviewed as appropriate & no additional complaints except as documented Constitutional Constitutional: Reports as per HPI Physical Exam <Stefanie Enrique (ED), METER INSTALLER - Last Filed: 01/24/25 17:20> General General appearance: alert Head Head exam: normocephalic Eye Eye exam: Present normal appearance, PERRL and EOMI ENT ENT exam: Present normal oropharynx and mucous membranes moist Neck Neck exam: Present full ROM and trachea midline Respiratory Respiratory exam: Present normal lung sounds bilaterally Cardiovascular Cardiovascular exam: Present regular rate, normal rhythm, normal heart sounds, +S1 and +S2 Abdominal Exam Abdominal exam: Present soft and normal bowel sounds Extremities Exam Extremities exam: Present tenderness and edema (Right lower extremity with edema, erythema to foot and toes) Neurological Exam Neurological exam: Present alert and oriented X3 Skin Skin exam: Present warm, dry and erythema Medical Decision Making <Stefanie Reynoldsbrandie (ED), METER INSTALLER - Last Filed: 01/24/25 17:20> Medical Records Medical records reviewed: Yes I reviewed the patient's medical records. Screening: Per USPSTF and CDC recommendations, given the prevalence of disease in our region, it is our hospital?s policy to screen for HIV and viral Hepatitis for all patients aged 18 and over and those with ongoing risk factors. Stas Inquiry Pt receiving controlled substance: No Stas was queried for this patient: No Vital Signs: 01/24/25 14:47 01/24/25 16:06 01/24/25 16:24 Temperature 97.7 F 98 F Temperature Source Oral Pulse Rate 100 H 84 Pulse Rate [Right] 99 H Respiratory Rate 20 16 Blood Pressure 116/73 116/73 Blood Pressure [Right Arm] 139/78 Blood Pressure Mean 86 Blood Pressure Mean [Right Arm] 98 Blood Pressure Source Blood Pressure Source [Right Arm] Automatic Cuff Blood Pressure Position 02 Sat by Pulse Oximetry 100 97 Oxygen Delivery Method Room Air 01/24/25 16:25 Temperature 97.4 F L Temperature Source Oral Pulse Rate 84 Pulse Rate [Right] Respiratory Rate 15 Blood Pressure 116/73 Blood Pressure [Right Arm] Blood Pressure Mean Blood Pressure Mean [Right Arm] Blood Pressure Source Automatic Cuff Blood Pressure Source [Right Arm] Blood Pressure Position Supine 02 Sat by Pulse Oximetry Oxygen Delivery Method Room Air Lab Data Lab Results 01/24/25 15:16: WBC 7.2, RBC 4.81, Hgb 14.1, Hct 42.2, MCV 87.7, MCH 29.3, MCHC 33.4, RDW 13.2, Plt Count 304, MPV 8.2, Neut % (Auto) 63.9, Lymph % (Auto) 25.3, Cochran % (Auto) 4.6, Eos % (Auto) 5.1, Baso % (Auto) 0.8, Neut # (Auto) 4.6, Lymph # (Auto) 1.8, Cochran # (Auto) 0.3, Eos # (Auto) 0.4, Baso # (Auto) 0.1, D-Dimer 0.40, Sodium 139, Potassium 3.6, Chloride 103, Carbon Dioxide 23, Anion Gap 16.6 H, BUN 28 H, Creatinine 0.80, Estimated Creat Clear 83, Estimated GFR 74, Est GFR ( Amer) 90, Glucose 200 H, Calcium 8.9, Magnesium 2.0, Total Bilirubin 0.2, AST 37 H, ALT 32, Alkaline Phosphatase 107, NT-Pro-B Natriuret Pep 68.3, Total Protein 7.3, Albumin 4.0, Globulin 3.3 H, Albumin/Globulin Ratio 1.2 01/24/25 15:16 01/24/25 15:16 Orders (Tests/Meds): ORDERS Category Date Time Status BNP [NT Pro Brain Natriuretic Pep.] Stat Lab 01/24/25 15:16 Completed CBC [Complete Blood Count Auto Diff] Stat Lab 01/24/25 15:16 Completed Comprehensive Metabolic Panel Stat Lab 01/24/25 15:16 Completed D-Dimer Stat Lab 01/24/25 15:16 Completed Magnesium Stat Lab 01/24/25 15:16 Completed CA venous doppler LE RT Stat Y 01/24/25 14:58 Completed Medical Decision Narrative: patient is a 54-year-old female presenting to the emergency department for evaluation of right lower extremity edema, itching, and burning for 2 weeks.. Patient is hemodynamically stable and nontoxic-appearing upon arrival, afebrile. Differential diagnosis includes cellulitis, DVT, among others. Workup will be conducted with hematologic labs, specific imaging. Initial inventions include DVT ultrasound and labs. air analysis engineering technician says that this ultrasound is is negative for DVT. Will treat patient for cellulitis and have her follow-up with PCP. She does not have a primary care but I gave her a list of the doctors taking patients. Discussed with patient. Patient safe for discharge home. <Jonathan Azevedo MD - Last Filed: 01/25/25 07:35> Vital Signs: 01/24/25 14:47 01/24/25 16:06 01/24/25 16:24 Temperature 97.7 F 98 F Temperature Source Oral Pulse Rate 100 H 84 Pulse Rate [Right] 99 H Respiratory Rate 20 16 Blood Pressure 116/73 116/73 Blood Pressure [Right Arm] 139/78 Blood Pressure Mean 86 Blood Pressure Mean [Right Arm] 98 Blood Pressure Source Blood Pressure Source [Right Arm] Automatic Cuff Blood Pressure Position 02 Sat by Pulse Oximetry 100 97 Oxygen Delivery Method Room Air 01/24/25 16:25 Temperature 97.4 F L Temperature Source Oral Pulse Rate 84 Pulse Rate [Right] Respiratory Rate 15 Blood Pressure 116/73 Blood Pressure [Right Arm] Blood Pressure Mean Blood Pressure Mean [Right Arm] Blood Pressure Source Automatic Cuff Blood Pressure Source [Right Arm] Blood Pressure Position Supine 02 Sat by Pulse Oximetry Oxygen Delivery Method Room Air Lab Data Lab Results 01/24/25 15:16: WBC 7.2, RBC 4.81, Hgb 14.1, Hct 42.2, MCV 87.7, MCH 29.3, MCHC 33.4, RDW 13.2, Plt Count 304, MPV 8.2, Neut % (Auto) 63.9, Lymph % (Auto) 25.3, Cochran % (Auto) 4.6, Eos % (Auto) 5.1, Baso % (Auto) 0.8, Neut # (Auto) 4.6, Lymph # (Auto) 1.8, Cochran # (Auto) 0.3, Eos # (Auto) 0.4, Baso # (Auto) 0.1, D-Dimer 0.40, Sodium 139, Potassium 3.6, Chloride 103, Carbon Dioxide 23, Anion Gap 16.6 H, BUN 28 H, Creatinine 0.80, Estimated Creat Clear 83, Estimated GFR 74, Est GFR ( Amer) 90, Glucose 200 H, Calcium 8.9, Magnesium 2.0, Total Bilirubin 0.2, AST 37 H, ALT 32, Alkaline Phosphatase 107, NT-Pro-B Natriuret Pep 68.3, Total Protein 7.3, Albumin 4.0, Globulin 3.3 H, Albumin/Globulin Ratio 1.2 Orders (Tests/Meds): ORDERS Category Date Time Status BNP [NT Pro Brain Natriuretic Pep.] Stat Lab 01/24/25 15:16 Completed CBC [Complete Blood Count Auto Diff] Stat Lab 01/24/25 15:16 Completed Comprehensive Metabolic Panel Stat Lab 01/24/25 15:16 Completed D-Dimer Stat Lab 01/24/25 15:16 Completed Magnesium Stat Lab 01/24/25 15:16 Completed CA venous doppler LE RT Stat Y 01/24/25 14:58 Completed Medical Decision Narrative: patient is a 54-year-old female presenting to the emergency department for evaluation of right lower extremity edema, itching, and burning for 2 weeks.. Patient is hemodynamically stable and nontoxic-appearing upon arrival, afebrile. Differential diagnosis includes cellulitis, DVT, among others. Workup will be conducted with hematologic labs, specific imaging. Initial inventions include DVT ultrasound and labs. air analysis engineering technician says that this ultrasound is is negative for DVT. Will treat patient for cellulitis and have her follow-up with PCP. She does not have a primary care but I gave her a list of the doctors taking patients. Discussed with patient. Patient safe for discharge home. I was consulted by the MARIA G, and we discussed the complexity of the problems being addressed. I approved the treatment and management plan for this patient's care in the Emergency Department, thus performing a substantive portion of the medical decision making. Jonathan Azevedo MD Critical Care <Stefanie Enrique (ED), METER INSTALLER - Last Filed: 01/24/25 17:20> Critical Care Time Critical Care Time: No
--- NOTE | 2025-01-24 15:26 | PC.NURSE ---
bedside Doppler completed.
[2025-01-24 15:29] LABS: Basophils # 0.1 K/mm3 (0-0.2); Basophils % 0.8 % (0.1-2.0); Eosinophils # 0.4 Kmm3 (0.0-0.4); Eosinophils % 5.1 % (0.1-12.0); Hematocrit 42.2 % (37.0-47.0); Hemoglobin 14.1 g/dL (12.2-16.2); Immature Granulocytes # 0.02 10^3uL; Immature Granulocytes % 0.3 %; Lymphocytes # 1.8 K/mm3 (0.7-4.5); Lymphocytes % 25.3 % (10-50); Mean Corpuscular HGB Conc 33.4 g/dL (31.8-35.4); Mean Corpuscular Hemoglobin 29.3 pg (27.0-31.2); Mean Corpuscular Volume 87.7 fl (81-99); Mean Platelet Volume 8.2 fl (7.4-10.4); Monocytes # 0.3 K/mm3 (0.1-1.0); Monocytes % 4.6 % (1.7-9.3); Neutrophils # 4.6 K/mm3 (1.8-7.8); Neutrophils % 63.9 % (37.0-80.0); Nucleated Red Blood Cells # 0 10^3/uL; Nucleated Red Blood Cells % 0 %; Platelet Count 304 K/mm3 (142-424); Red Blood Count 4.81 M/mm3 (4.20-5.40); Red Cell Distribution Width 13.2 % (11.5-17.5); Red Cell Distribution Width-SD 42.3 fL; White Blood Count 7.2 K/mm3 (4.8-10.8)
[2025-01-24 15:37] LABS: Chloride 103 mmol/L (98-107)
[2025-01-24 15:38] LABS: Potassium 3.6 mmoL/L (3.5-5.1); Sodium 139 mmol/L (136-145)
[2025-01-24 15:40] LABS: Blood Urea Nitrogen 28 mg/dl (7-17); Carbon Dioxide 23 mmol/L (22.0-30.0); Creatinine Clearance Estimated 83 mL/min (50-200); Estimated Glomerular Filt Rate 74 ml/min (>60); GFR (African American) 90 ML/MIN (>60)
[2025-01-24 15:41] LABS: Alanine Aminotransferase 32 U/L (12-78); Albumin/Globulin Ratio 1.2 (1.1-1.8); Alkaline Phosphatase 107 U/L (38-126); Anion Gap 16.6 mEq/L (5-15); Aspartate Amino Transferase 37 U/L (14-36); Bilirubin,Total 0.2 mg/dl (0.2-1.3); Calcium 8.9 mg/dl (8.4-10.2); Globulin 3.3 g/dL (1.3-3.2); Glucose 200 mg/dl (74-100); Total Protein,Serum 7.3 g/dl (6.3-8.2)
[2025-01-24 15:50] LABS: NT Pro Brain Natriuretic Pep. 68.3 pg/mL (0-125)
[2025-01-24 16:06] VITALS: BP 116/73; PULSE 100; O2SAT 97
[2025-01-24 16:24] VITALS: BP 116/73; PULSE 84; RESP 16; TEMP 36.6; O2SAT 97
[2025-01-24 16:25] VITALS: BP 116/73; PULSE 84; RESP 15; TEMP 36.3; O2SAT 97
== END 2025-01-24 16:29 | disposition home or self-care (01) ==
PROVIDERS: Nurse Practitioner; Emergency Provider Emergency Medicine
DX: L03.115 Cellulitis of right lower limb (principal); R60.0 Localized edema; F17.210 Nicotine dependence, cigarettes, uncomplicated
CPT/HCPCS: 80053; 83735; 83880; 85025; 85378; 93971; 99284